=== PATIENT | female | born 1945 | race Caucasian/White ===

== ENCOUNTER 2017-01-24 18:19 | Inpatient (IN) ==
--- NOTE | 2017-01-24 18:40 | EKG Report ---
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
[2017-01-24] MEDS ORDERED: ASPIRIN 325 MG TABLET PO STA (19:56)
[2017-01-24] MEDS ORDERED: ASPIRIN 325 MG TABLET ONE (20:03)
[2017-01-24 20:07] LABS: Basophils # 0.1 10*3/uL (0.0-0.2); Basophils % 0.5 % (0.0-0.8); Eosinophils # 0.1 10*3/uL (0.0-0.87); Eosinophils % 0.4 % (0.00-10.9); Hematocrit 44.9 VOL% (35.7-47.0); Hemoglobin 14.9 GM/DL (12.0-16.0); Immature Granulocytes % 0.3 %; Immature Granulocytes Absolute 0.05 #; Lymphocytes # 4.5 10*3/uL (1.4-4.0); Lymphocytes % 26.3 % (21.3-54.2); Mean Corpuscular HGB Conc 33.2 GM/DL (32-36); Mean Corpuscular Hemoglobin 31 PG (27-34); Mean Platelet Volume 11.8 FL (9.6-12.0); Monocytes # 2.5 10*3/uL (0.11-0.8); Monocytes % 14.6 % (1.7-12.7); Neutrophils # 9.8 10*3/uL (1.4-7.4); Neutrophils % 57.9 % (38.7-73.9); Platelet Count 267 T/CUMM (130-400); Red Blood Count 4.83 MC/CUMM (3.8-5.5); Red Cell Distribution Width 14.4 % (9.3-17.3)
--- NOTE | 2017-01-24 20:21 | XRay Report ---
XR chest 1V portable Indication: Chest pain, dyspnea Comparison: 25 August 2010 Findings: The heart and mediastinum are stable in size and configuration. The pulmonary vascularity is slightly increased with bilateral increased interstitial lung density. No other lung infiltrates, effusions, pneumothorax or other abnormality is demonstrated. Impression: Findings suggest mild cardiac decompensation. PROCEDURE INTERPRETED AT [facility] DEPARTMENT OF RADIOLOGY Final Report Signed by: Dr. Troy Nolasco
[2017-01-24 20:22] LABS: D-Dimer 0.7 MG/L FEU; INR 1.1; PT Patient Result 11.3 SECS; Partial Thromboplastin Time 26.4 SECS (0-40)
[2017-01-24 20:30] LABS: Alanine Aminotransferase 19 U/L (13-56); Albumin 3.7 G/DL (3.4-5.0); Alkaline Phosphatase 122 U/L (45-117); Aspartate Amino Transferase 14 U/L (0-37); Blood Urea Nitrogen 10 MG/DL (7-18); Calcium 9.1 MG/DL (8.5-10.1); Glucose 107 MG/DL (74-106); Osmolality,Calculated 275.5 MOS/KG (273-304); Sodium 139 MMOL/L (136-145); Total Protein 8.2 G/DL (6.4-8.3); Troponin I Only 0.017 NG/ML (0.00-0.045)
--- NOTE | 2017-01-24 21:41 | Emergency Department Note ---
Arrival - Arrival Chief Complaint: Chest Pain Stated Complaint: chest pains/sob ED Nursing Triage Note: C/O Having chest pain since 0700, also c/o having SOB., States the pain is radiating to the left shoulder, denies nausea., denies vomiting., + coughing., denies having increase temp at home, ekg obtained at triage Mode of Arrival: Wheelchair Limitations: No Limitations Source: Patient, RN Notes Reviewed Time Seen by Provider: 01/24/17 19:26 - History of Present Illness HPI Narrative: Patient complains of shortness of breath and chest pains off and on since 7:00 this morning. She is having no chest pain now, just shortness of breath. She describes the chest pain as pressure and radiating from the left shoulder to the chest. She has had no nausea, vomiting or diaphoresis. She notes no exacerbating or relieving factors. She denies fever, chills, cough or any other recent illness. She has a history of hypertension, hyperlipidemia and heart disease. She has had bypass and stents in the past. Allergies/Adverse Reactions: Allergies Allergy/AdvReac Type Severity Reaction Status Date / Time allopurinol Allergy HIVES Verified 01/24/17 18:34 pregabalin [From Lyrica] Allergy HIVES Verified 01/24/17 18:34 Review of System - Review of System 12 point system: reviewed and no additional remarkable complaints except as stated - Review of System Constitutional: Present: weakness. Absent: chills, diaphoresis, fever Head/Ears/Nose/Throat: Absent: nasal drainage, sore throat Respiratory: Present: cough, respiratory distress. Absent: wheezing Cardiovascular: Present: chest pain, dyspnea on exertion, edema (Chronic but perhaps worse than baseline.) Gastrointestinal: Absent: nausea, vomiting Musculoskeletal: Present: arm pain (Left shoulder) Medical,Surgical,& Family Hx - Medical History Cardio: History of: CAD, Hypertension Endocrine: History of: Dyslipidemia - Surgical History Cardiac Surgeries: Sugical HX of: Cardiac Catheterization, Cardiac Surgery - Family History Family History: noncontributory - Social History Smoking Status: Never smoker Frequency of Alcohol Use: None Type of Drug Use: None Exam Physical Examination: GENERAL: Alert. No acute distress. HEENT: Normocephalic and atraumatic. There is no nasal drainage. No pharyngeal erythema or exudate. NECK: Normal inspection. Supple. No lymphadenopathy or meningismus. LUNGS: No respiratory distress. Rales bilaterally right greater than left. HEART: Regular rate and rhythm. ABDOMEN: Soft, nontender and nondistended with normoactive bowel sounds. BACK: Normal inspection. SKIN: Color normal. Warm and dry. EXTREMITIES: Nontender. Normal range of motion. There is severe brawny edema to both lower extremities. NEUROLOGICAL/PSYCHIATRIC: Alert and oriented -3 with normal mood and affect. Cranial nerves normal. No motor or sensory deficit. Vital Signs: Vital Signs Temperature 101 F H 01/24/17 19:20 Pulse Rate 58 L 01/24/17 19:20 Respiratory Rate 16 01/24/17 19:20 Blood Pressure 185/86 01/24/17 19:20 O2 Sat by Pulse Oximetry 94 L 01/24/17 18:24 Course - Reevaluation(s) Reevaluation #1: Cardiac enzymes are normal. There appears to be increased density in the right lower lobe on the chest x-ray. Given this, her elevated white count and elevated temperature, I think this is pneumonia rather than CHF. I discussed the patient with Dr. Tan and will admit her to telemetry and start antibiotics. We will recheck her cardiac enzymes as well but they are normal at this point. I will avoid giving her a lot of fluids due to the possibility of some CHF as well. Time: 21:50 Results - Labs CBC & BMP: 01/24/17 19:55 01/24/17 19:55 Disposition Clinical Impression: Chest pain, Pneumonia Case discussed with: patient, patient's family Disposition: Still a Patient Condition: Stable Time of Disposition: 21:51
[2017-01-24] MEDS ORDERED: cefTRIAXone 1,000 MG in SODIUM CHLORIDE 0.9% 100 ML IV STA (21:45)
[2017-01-24] MEDS ORDERED: SODIUM CHLORIDE 0.9% 100 ML IV ONE (23:12)
[2017-01-24] MEDS ORDERED: cefTRIAXone 1,000 MG VIAL ONE (23:12)
[2017-01-25] MEDS ORDERED: SODIUM CHLORIDE 0.45% 1,000 ML IV SCH (00:27)
[2017-01-25] MEDS ORDERED: ONDANSETRON 4 MG/2 ML VIAL IV PRN (00:27)
[2017-01-25] MEDS ORDERED: MORPHINE 2 MG/1 ML SYRINGE IV PRN (00:27)
[2017-01-25] MEDS ORDERED: ACETAMINOPHEN 325 MG TABLET PO PRN (00:27)
[2017-01-25] MEDS ORDERED: LEVOFLOXACIN INJ 750 MG in PREMIX 1 EACH IV STA (00:27)
[2017-01-25 01:30] LABS: Apearance,Urine CLEAR (Clear); Bilirubin,Urine Negative (Negative); Blood, Urine Negative (Negative); Glucose,Urine (UA) Negative (Negative); Ketones,Urine Negative (Negative); Nitrite,Urine Negative (Negative); Protein,Urine Negative; RBC,Urine <1 /HPF (0-4); Squamous Epithelial Cell,Urine Occasional /HPF (0-10); Urine Color Straw (Yellow); Urine Specific Gravity 1.005 (1.001-1.035); Urine Urobilinogen < 2.0 EU/DL (0.2-1.0); WBC,Urine 1 /HPF (0-6)
--- NOTE | 2017-01-25 08:32 | Family Practice History&Phys ---
Assessment and Plan (1) right lower lobe pneumonia Status: Acute Assessment and plan: We will admit and start on empiric antibiotic therapy Current Visit: Yes (2) status post coronary artery bypass graft Status: Chronic Assessment and plan: We'll consult cardiology since patient has not been seen in years for follow-up Current Visit: Yes (3) Coronary artery disease Status: Chronic Assessment and plan: We'll ask cardiology to a bowel patient who has not been followed for years for coronary artery disease Current Visit: Yes (4) Hypertension Status: Chronic Assessment and plan: Stable on present medication Current Visit: Yes (5) Unspecified sleep apnea Status: Chronic Assessment and plan: We will consult Dr. Balderas to evaluate Current Visit: Yes (6) Morbid obesity with BMI of 50.0-59.9, adult Status: Chronic Assessment and plan: Has been very difficult to have patient lose any meaningful weight Current Visit: Yes (7) Hyperlipidemia Status: Chronic Assessment and plan: Stable on present medication Current Visit: Yes History of Present Illness Chief complaint: Chest pain, dyspnea History of present illness: Ms. Kulkarni is a 71 year old female 71-year-old white female well known to me presented to emergency room with complaint of slight cough with pain in the left upper chest and dyspnea. Symptoms rather rapid onset over a 24-hour period of time. She was seen in emergency room and diagnosed with a right lower lobe pneumonia. She has had minimal cough but have a temperature of 101 on admission she also had a 17,000 white blood cell count. Chest x-ray is read more of a heart failure and pneumonia. BNP is 108. Patient states she was extremely dyspneic on admission. Has a history of coronary artery disease with previous coronary bypass graft has had no cardiac follow-up in many years in view of overall history we'll admit and have cardiology evaluate during this hospitalization she has been started on empiric antibiotic therapy . Home Medications Medication Instructions Recorded Confirmed Type Amlodipine Besylate [Amlodipine 10 mg PO DAILY 01/25/17 01/25/17 History Besylate] Aspirin [Ecotrin] 81 mg PO DAILY 01/25/17 01/25/17 History Atorvastatin [Lipitor] 40 mg PO DAILY 01/25/17 01/25/17 History Clopidogrel Bisulfate [Clopidogrel] 75 mg PO DAILY 01/25/17 01/25/17 History Furosemide [Furosemide] 40 mg PO DAILY 01/25/17 01/25/17 History Metoprolol Succinate 25 mg PO DAILY 01/25/17 01/25/17 History raNITIdine HCl [Ranitidine HCl] 300 mg PO DAILY 01/25/17 01/25/17 History Allergies Allergy/AdvReac Type Severity Reaction Status Date / Time allopurinol Allergy HIVES Verified 01/24/17 18:34 pregabalin [From Lyrica] Allergy HIVES Verified 01/24/17 18:34 Medical,Surgical,& Family Hx - Medical History Cardio: History of: CAD, Hypertension, Cardiovascular Problems HEENT: History of: Eye Problem Endocrine: History of: Dyslipidemia Musculoskeletal: History of: Musculoskeletal Problems - Surgical History Cardiac Surgeries: Sugical HX of: Cardiac Catheterization, Cardiac Surgery Thoracic Surgeries: Patient denies;: Organ Transplant, Lobectomy Neurologic Surgeries: Patient denies: Neurologic Surgery Abdominal Surgeries: Patient denies: Abdominal Surgery Reproductive Surgeries: Surgical HX of;: Hysterectomy Patient denies;: Genitourinary Surgery Orthopedic Surgeries: Surgical HX of;: Total Knee Replacement - Social History Smoking Status: Never smoker Frequency of Alcohol Use: None Type of Drug Use: None Marital Status: Lives With:: Spouse Functional capacity: independent ambulation Exam - Constitutional Vitals: Period Temp Pulse Resp BP Sys/Grant Pulse Ox Last 24 Hr 99.6 F-101.0 F 58-80 16-20 145-190/64-88 92-95 General appearance: mild distress - Head Head exam: Present: normal inspection - Eye Eye exam: Present: EOMI Pupils: Present: DELL - ENT ENT exam: Present: normal exam - Neck Neck exam: Present: normal inspection - Respiratory Respiratory exam: Present: clear to auscultation bilaterally - Cardiovascular Cardiovascular exam: Present: regular rate and rhythm - GI/Abdominal GI/Abdominal exam: Present: normal bowel sounds, soft - Extremities Exam Extremities exam: Present: other (patient has lymphedema ankles and feet) - Back Exam Back exam: Present: normal inspection - Neurological Exam Neurological exam: Present: alert - Psychiatric Psychiatric exam: Present: normal affect, normal mood - Skin Skin exam: Present: normal color Results - Labs CBC & BMP: 01/24/17 19:55 01/24/17 19:55
[2017-01-25] MEDS ORDERED: FUROSEMIDE 40 MG TABLET PO SCH (09:00)
[2017-01-25] MEDS ORDERED: METOPROLOL SUCCINATE XL 25 MG TABLET PO SCH (09:00)
[2017-01-25] MEDS: DOCUSATE SODIUM 100 MG CAPSULE PO SCH ×2 (09:31→21:39)
[2017-01-25] MEDS: ATORVASTATIN 40 MG TABLET PO SCH (09:31)
[2017-01-25] MEDS: amLODIPine 10 MG TABLET PO SCH (09:31)
[2017-01-25] MEDS: CLOPIDOGREL 75 MG TABLET PO SCH (09:32)
[2017-01-25] MEDS: ASPIRIN EC 81 MG TABLET PO SCH (09:32)
[2017-01-25] MEDS: PANTOPRAZOLE 40 MG TABLET PO SCH (09:32)
--- NOTE | 2017-01-25 10:46 | Cardiology Consult Note ---
<Dorina Gloria E - Last Filed: 01/25/17 10:43> Assessment and Plan - Time spent with patient Time spent with patient: Greater than 30 minutes (due to assessment, plan, and documentation) (1) Chest pain Status: Acute Assessment and plan: See plan of care listed below. Current Visit: Yes (2) Pneumonia Status: Acute Assessment and plan: See plan of care listed below. Current Visit: Yes (3) Coronary artery disease Status: Chronic Assessment and plan: See plan of care listed below. Current Visit: Yes (4) Hypertension Status: Chronic Assessment and plan: See plan of care listed below. Current Visit: Yes (5) Hyperlipidemia Status: Chronic Assessment and plan: See plan of care listed below. Current Visit: Yes (6) Morbid obesity with BMI of 50.0-59.9, adult Status: Chronic Assessment and plan: See plan of care listed below. 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 Mcbride PCP: Dr. David Ms. Kulkarni is a 71 year old female with history of premature coronary artery disease, hypertension, hyperlipidemia, morbid obesity. She is status post coronary artery bypass grafting on 11/26/1997 (at age 51) by Dr. Adams with LUNDBERG to the LAD, Y graft using saphenous vein to the diagonal and circumflex, and single graft to the RCA. She is a lifetime non-smoker. She tells me that she has not followed up with cardiology in over 10 years as her insurance changed and would no longer cover [facility] physicians and required her to go to [facility] which she did not wish to do. She denies a history of smoking and states she has never been checked for sleep apnea. She last had a normal perfusion study on 10/20/2004. Ms. Kulkarni presented to the emergency room with complaints of cough, dyspnea, and pain in the left upper chest, rapidly onset over the past 24 hours. Her initial temperature was 101 she had a white count of 17. She was admitted for further treatment of right lower lobe pneumonia and we were consulted to see her due to her complaint of chest pain. Ms. Kulkarni tells me that her symptoms really began yesterday morning when she woke up with her left chest wall and shoulder hurting. She also states she was short of breath, more so than usual. She describes her pain as being sharp in quality and isolated to her left chest wall and on top of her left shoulder. She reports it was "pretty painful. " It came and went throughout the day until she decided to seek further evaluation in the emergency room. She can identify no exacerbating or alleviating factors. She notes that this is very different from the pain that she had before she required coronary artery bypass grafting. She does admit that she has had chronic dyspnea on exertion ever since having bypass surgery and this does not seem to have changed recently. She denies any chest pain on exertion. She does report occasional bilateral lower extremity edema and occasional palpitations (this occurred twice in the month of September and has not occurred since). She reports that prior to admission she "felt bad" 2 nights ago and has been fatigued. She has had 3 sets of negative troponins. Her EKG shows sinus rhythm with nonspecific ST and T-wave abnormality. I am unable to access any prior EKGs for comparison. Her BNP on admission was 108. Creatinine on admission was 0.7. Potassium 4.0. ASSESSMENT/PLAN: 1. CHEST PAIN - Although her pain does not sound completely typical of angina, she has not had cardiac follow up in many years. She has been ruled out for MD, but she would likely benefit from further evaluation with stress testing. Will further discuss with Dr. Mcbride for his recommendations on inpatient versus outpatient stress testing. 2. PNEUMONIA - Family medicine is following. She has been started on IVF for hydration and IV antibiotics. 3. CORONARY ARTERY DISEASE - She is status post coronary artery bypass grafting on 11/26/[address] Adams with LUNDBERG to the LAD, Y graft using saphenous vein to the diagonal and circumflex, and single graft to the RCA. Continue ASA, Plavix , statin, beta kunal. Will check echocardiogram to assess for wall motion or valvular abnormalities. 4. HYPERTENSION - Suboptimally controlled since admission. Will increase her dose of Toprol XL and continue to monitor and adjust medications accordingly. 5. HYPERLIPIDEMIA - Continue lipid lowering agent. Lipid panel in AM. 6. MORBID OBESITY - Chronic. CC: Patel David, DO - Home Medications and Allergies Home Medications: Home Medications Medication Instructions Recorded Confirmed Type Amlodipine Besylate [Amlodipine 10 mg PO DAILY 01/25/17 01/25/17 History Besylate] Aspirin [Ecotrin] 81 mg PO DAILY 01/25/17 01/25/17 History Atorvastatin [Lipitor] 40 mg PO DAILY 01/25/17 01/25/17 History Clopidogrel Bisulfate [Clopidogrel] 75 mg PO DAILY 01/25/17 01/25/17 History Furosemide [Furosemide] 40 mg PO DAILY 01/25/17 01/25/17 History Metoprolol Succinate 25 mg PO DAILY 01/25/17 01/25/17 History raNITIdine HCl [Ranitidine HCl] 300 mg PO DAILY 01/25/17 01/25/17 History Allergies/Adverse Reactions: Allergies Allergy/AdvReac Type Severity Reaction Status Date / Time allopurinol Allergy HIVES Verified 01/24/17 18:34 pregabalin [From Lyrica] Allergy HIVES Verified 01/24/17 18:34 Review of systems: - Constitutional: Present: fatigue, fever(s), As per HPI. Absent: anorexia, chills, daytime sleepiness, excessive sweating, frequent falls, headache(s), increased appetite, lethargy, malaise, night sweats, stops breathing during sleep, weakness, weight gain, weight loss. - EENT Eyes: Present: As per HPI. Absent: blurry vision, diplopia, loss of vision Ears: Present: As per HPI. Absent: decreased hearing, ear discharge, ear pain Nose, mouth and throat: Present: As per HPI. Absent: dysphagia, epistaxis, headache(s), hoarseness, lip swelling, nasal congestion, neck mass, neck pain, sinus pressure, sore throat, throat swelling, tongue swelling, vertigo - Cardiovascular: Present: chest pain at rest, dyspnea, dyspnea on exertion, edema, radiating shoulder pain, palpitations, as per HPI. Absent: chest pain with activity, claudication, diaphoresis, lightheadedness, orthopnea, PND - Respiratory: Present: dyspnea, dyspnea on exertion, cough, as per HPI. Absent : hemoptysis, wheezing, snoring, pain on inspiration - Gastrointestinal: Present: As per HPI. Absent: abdominal pain, bloating, change in bowel habits, constipation, diarrhea, heartburn, hematemesis, hematochezia, loose stools, melena, nausea, vomiting - Genitourinary: Present: As per HPI. Absent: difficulty urinating, dysuria, flank pain, hematuria, nocturia, urinary frequency, urinary incontinence - Musculoskeletal: Present: As per HPI. Absent: arthralgias, back pain, joint swelling, limited range of motion, muscle cramps, muscle weakness, myalgias - Neurological: Present: As per HPI. Absent: abnormal gait, abnormal speech, behavioral changes, confusion, convulsions, disequilibrium, dizziness, focal weakness, frequent falls, headache(s), memory loss, numbness, paresthesias, radicular pain, syncope, tremor(s) - Psychiatric: Present: As per HPI. Absent: anxiety, confusion, depression, panic attacks - Endocrine: Present: fatigue, As per HPI. Absent: cold intolerance, heat intolerance, polydipsia, polyphagia - Hematologic/Lymphatic: Present: As per HPI. Absent: easy bleeding, easy bruising, lymphadenopathy Medical,Surgical,& Family Hx - Medical History Cardio: History of: CAD, Hypertension, Cardiovascular Problems HEENT: History of: Eye Problem Endocrine: History of: Dyslipidemia Musculoskeletal: History of: Musculoskeletal Problems - Surgical History Cardiac Surgeries: Sugical HX of: Cardiac Catheterization, Cardiac Surgery Thoracic Surgeries: Patient denies;: Organ Transplant, Lobectomy Neurologic Surgeries: Patient denies: Neurologic Surgery Abdominal Surgeries: Patient denies: Abdominal Surgery Reproductive Surgeries: Surgical HX of;: Hysterectomy Patient denies;: Genitourinary Surgery Orthopedic Surgeries: Surgical HX of;: Total Knee Replacement - Social History Smoking Status: Never smoker Frequency of Alcohol Use: None Type of Drug Use: None Marital Status: Lives With:: Spouse Functional capacity: independent ambulation Physical Examination Vital Signs Temp Pulse Resp BP Pulse Ox 101.0 F H 58 L 16 185/86 94 L 01/24/17 18:24 01/24/17 18:24 01/24/17 18:24 01/24/17 18:24 01/24/17 18:24 Exam: General appearance: Pleasant and cooperative. Morbidly obese, no acute distress. - Head Head exam: Present: normal inspection, normocephalic, atraumatic. Absent: hematoma, laceration - Eye Eye exam: Present: EOMI. Absent: conjunctival injection, nystagmus, periorbital swelling, scleral icterus, laceration to eyelids Pupils: Present: PERRL. Absent: constricted, dilated, fixed, irregular, unequal - ENT ENT exam: Present: normal exam, normal external ear exam - Neck Neck exam: Present: normal inspection. Absent: meningismus, tenderness, thyromegaly, carotid bruit - Respiratory Respiratory exam: Present: Decreased breath sounds posteriorly with rales bilaterally, right greater than left. Absent: accessory muscle use, chest wall tenderness. - Cardiovascular Cardiovascular exam: Present: regular rate and rhythm. Unable to assess for JVD due to habitus. Absent: gallop, rubs, murmur - GI/Abdominal GI/Abdominal exam: Present: normal bowel sounds, soft. Absent: distended, firm , guarding, hernia, mass, tenderness, rebound. - Extremities Exam Extremities exam: Present: normal inspection, normal capillary refill. Upper extremity pulses 2+. Lower extremity pulses 2+. 2+ pitting edema to BLE. Absent : calf tenderness -Musculoskeletal Exam Musculoskeletal: Present: No Fluid Collection, No Pain, Normal Range of Motion - Back Exam Back exam: Present: normal inspection. Absent: muscle spasm, vertebral tenderness - Neurological Exam Neurological exam: Present: alert, oriented X3, grossly intact without resting or essential tremor - Psychiatric Psychiatric exam: Present: normal affect, normal mood - Skin Skin exam: Present: normal color, warm, dry, intact, scaly patches noted to BLE. Absent: cyanosis, diaphoretic, urticaria Result/EKG - Labs CBC & BMP: 01/24/17 19:55 01/24/17 19:55 Lab Results: I have reviewed the past 24 hour labs Labs: Laboratory Results - last 24 hr 01/24/17 01/24/17 01/24/17 19:55 19:55 19:55 WBC RBC Hgb Hct MCV MCH MCHC RDW Plt Count MPV Neut % (Auto) Lymph % (Auto) Adams % (Auto) Eos % (Auto) Baso % (Auto) Neut # (Auto) Lymph # (Auto) Adams # (Auto) Eos # (Auto) Baso # (Auto) Immature Gran % Nucleated RBC % Immature Gran # Nucleated RBCs # INR 1.1 PT Patient/Control Mix 11.3 D-Dimer, Quantitative 0.7 Circ Anticoag PTT 26.4 Sodium 139 Potassium 4.0 Chloride 105 Carbon Dioxide 27 Anion Gap 11.0 BUN 10 Creatinine 0.70 GFR Calculation 0 BUN/Creatinine Ratio 14.00 Glucose 107 H Calculated Osmolality 275.5 Lactic Acid Calcium 9.1 Total Bilirubin 0.80 AST 14 ALT 19 Alkaline Phosphatase 122 H Total Creatine Kinase 101 CK-MB (CK-2) < 1.0 Troponin I 0.017 B-Natriuretic Peptide 108 H Total Protein 8.2 Albumin 3.7 Globulin 4.5 H Albumin/Globulin Ratio 0.8 L Urine Color Urine Appearance Urine pH Ur Specific [place] Urine Protein Urine Glucose (UA) Urine Ketones Urine Blood Urine Nitrate Urine Bilirubin Urine Urobilinogen Urine Leukocytes Urine RBC Urine WBC Ur Squamous Epith Cells Ur Culture Indicated? 01/24/17 01/24/17 01/25/17 19:55 23:04 00:57 WBC 17.0 H RBC 4.83 Hgb 14.9 Hct 44.9 MCV 93.0 MCH 31 MCHC 33.2 RDW 14.4 Plt Count 267 MPV 11.8 Neut % (Auto) 57.9 Lymph % (Auto) 26.3 Adams % (Auto) 14.6 H Eos % (Auto) 0.4 Baso % (Auto) 0.5 Neut # (Auto) 9.8 H Lymph # (Auto) 4.5 H Adams # (Auto) 2.5 H Eos # (Auto) 0.1 Baso # (Auto) 0.1 Immature Gran % 0.3 Nucleated RBC % 0.0 Immature Gran # 0.05 Nucleated RBCs # 0.00 INR PT Patient/Control Mix D-Dimer, Quantitative Circ Anticoag PTT Sodium Potassium Chloride Carbon Dioxide Anion Gap BUN Creatinine GFR Calculation BUN/Creatinine Ratio Glucose Calculated Osmolality Lactic Acid 1.5 Calcium Total Bilirubin AST ALT Alkaline Phosphatase Total Creatine Kinase CK-MB (CK-2) Troponin I 0.018 B-Natriuretic Peptide Total Protein Albumin Globulin Albumin/Globulin Ratio Urine Color Urine Appearance Urine pH Ur Specific [place] Urine Protein Urine Glucose (UA) Urine Ketones Urine Blood Urine Nitrate Urine Bilirubin Urine Urobilinogen Urine Leukocytes Urine RBC Urine WBC Ur Squamous Epith Cells Ur Culture Indicated? 01/25/17 01/25/17 01:24 04:33 WBC RBC Hgb Hct MCV MCH MCHC RDW Plt Count MPV Neut % (Auto) Lymph % (Auto) Adams % (Auto) Eos % (Auto) Baso % (Auto) Neut # (Auto) Lymph # (Auto) Adams # (Auto) Eos # (Auto) Baso # (Auto) Immature Gran % Nucleated RBC % Immature Gran # Nucleated RBCs # INR PT Patient/Control Mix D-Dimer, Quantitative Circ Anticoag PTT Sodium Potassium Chloride Carbon Dioxide Anion Gap BUN Creatinine GFR Calculation BUN/Creatinine Ratio Glucose Calculated Osmolality Lactic Acid Calcium Total Bilirubin AST ALT Alkaline Phosphatase Total Creatine Kinase CK-MB (CK-2) Troponin I 0.029 B-Natriuretic Peptide Total Protein Albumin Globulin Albumin/Globulin Ratio Urine Color Straw Urine Appearance Clear Urine pH 8.0 Ur Specific [place] 1.005 Urine Protein Negative Urine Glucose (UA) Negative Urine Ketones Negative Urine Blood Negative Urine Nitrate Negative Urine Bilirubin Negative Urine Urobilinogen < 2.0 H Urine Leukocytes Negative Urine RBC <1 Urine WBC 1 Ur Squamous Epith Cells Occasional Ur Culture Indicated? Not indicated - EKG EKG results: interpreted by me, sinus rhythm (with nonspecific ST-T abnormality) <Vipul Mcbride - Last Filed: 01/25/17 13:23> History of Present Illness - Consult Narrative History of present illness: Cardiology addendum Patient examined chart reviewed and discussed with nurse Dorina Gloria NP. 71-year-old woman admitted with increasing shortness of breath and fatigue. Chest x-ray shows cardiomegaly and CHF. There is a right lower lobe density, suggestive of pneumonia. EKG shows sinus rhythm with incomplete right bundle branch block and ST-T wave changes. Status post four-vessel CABG November 26, 1997 with LUNDBERG graft to LAD, Y graft to diagonal and circumflex and vein graft to distal right coronary. Normal Lexiscan cardiac stress test October 20, 2004. No cardiac follow-up since then. Lifetime non-smoker. Chronic hypertension. Morbid obesity, 5 feet 6 inches tall, 364 pounds. Patient weighed 388 pounds 3 weeks ago No diabetes. Restless legs. IRENE suspected. Plan 40 mg IV Lasix daily Duo nebs Supplemental O2 as needed Echo Doppler Chest x-ray is more consistent with CHF, despite BNP level only 108. Bypass grafts are 19 years old. I am leaning toward cath. IRENE suspected. Will ask Dr. Balderas to see. CC: Patel David, DO Physical Examination Vital Signs Temp Pulse Resp BP Pulse Ox 101.0 F H 58 L 16 185/86 94 L 01/24/17 18:24 01/24/17 18:24 01/24/17 18:24 01/24/17 18:24 01/24/17 18:24 Result/EKG - Labs CBC & BMP: 01/24/17 19:55 01/24/17 19:55 Labs: Laboratory Results - last 24 hr 01/24/17 01/24/17 01/24/17 19:55 19:55 19:55 WBC RBC Hgb Hct MCV MCH MCHC RDW Plt Count MPV Neut % (Auto) Lymph % (Auto) Adams % (Auto) Eos % (Auto) Baso % (Auto) Neut # (Auto) Lymph # (Auto) Adams # (Auto) Eos # (Auto) Baso # (Auto) Immature Gran % Nucleated RBC % Immature Gran # Nucleated RBCs # INR 1.1 PT Patient/Control Mix 11.3 D-Dimer, Quantitative 0.7 Circ Anticoag PTT 26.4 Sodium 139 Potassium 4.0 Chloride 105 Carbon Dioxide 27 Anion Gap 11.0 BUN 10 Creatinine 0.70 GFR Calculation 0 BUN/Creatinine Ratio 14.00 Glucose 107 H Calculated Osmolality 275.5 Lactic Acid Calcium 9.1 Total Bilirubin 0.80 AST 14 ALT 19 Alkaline Phosphatase 122 H Total Creatine Kinase 101 CK-MB (CK-2) < 1.0 Troponin I 0.017 B-Natriuretic Peptide 108 H Total Protein 8.2 Albumin 3.7 Globulin 4.5 H Albumin/Globulin Ratio 0.8 L Urine Color Urine Appearance Urine pH Ur Specific [place] Urine Protein Urine Glucose (UA) Urine Ketones Urine Blood Urine Nitrate Urine Bilirubin Urine Urobilinogen Urine Leukocytes Urine RBC Urine WBC Ur Squamous Epith Cells Ur Culture Indicated? 01/24/17 01/24/17 01/25/17 19:55 23:04 00:57 WBC 17.0 H RBC 4.83 Hgb 14.9 Hct 44.9 MCV 93.0 MCH 31 MCHC 33.2 RDW 14.4 Plt Count 267 MPV 11.8 Neut % (Auto) 57.9 Lymph % (Auto) 26.3 Adams % (Auto) 14.6 H Eos % (Auto) 0.4 Baso % (Auto) 0.5 Neut # (Auto) 9.8 H Lymph # (Auto) 4.5 H Adams # (Auto) 2.5 H Eos # (Auto) 0.1 Baso # (Auto) 0.1 Immature Gran % 0.3 Nucleated RBC % 0.0 Immature Gran # 0.05 Nucleated RBCs # 0.00 INR PT Patient/Control Mix D-Dimer, Quantitative Circ Anticoag PTT Sodium Potassium Chloride Carbon Dioxide Anion Gap BUN Creatinine GFR Calculation BUN/Creatinine Ratio Glucose Calculated Osmolality Lactic Acid 1.5 Calcium Total Bilirubin AST ALT Alkaline Phosphatase Total Creatine Kinase CK-MB (CK-2) Troponin I 0.018 B-Natriuretic Peptide Total Protein Albumin Globulin Albumin/Globulin Ratio Urine Color Urine Appearance Urine pH Ur Specific [place] Urine Protein Urine Glucose (UA) Urine Ketones Urine Blood Urine Nitrate Urine Bilirubin Urine Urobilinogen Urine Leukocytes Urine RBC Urine WBC Ur Squamous Epith Cells Ur Culture Indicated? 01/25/17 01/25/17 01/25/17 01:24 04:33 10:43 WBC RBC Hgb Hct MCV MCH MCHC RDW Plt Count MPV Neut % (Auto) Lymph % (Auto) Adams % (Auto) Eos % (Auto) Baso % (Auto) Neut # (Auto) Lymph # (Auto) Adams # (Auto) Eos # (Auto) Baso # (Auto) Immature Gran % Nucleated RBC % Immature Gran # Nucleated RBCs # INR PT Patient/Control Mix D-Dimer, Quantitative Circ Anticoag PTT Sodium Potassium Chloride Carbon Dioxide Anion Gap BUN Creatinine GFR Calculation BUN/Creatinine Ratio Glucose Calculated Osmolality Lactic Acid Calcium Total Bilirubin AST ALT Alkaline Phosphatase Total Creatine Kinase 1057 H D CK-MB (CK-2) 3.7 H Troponin I 0.029 0.092 H D B-Natriuretic Peptide Total Protein Albumin Globulin Albumin/Globulin Ratio Urine Color Straw Urine Appearance Clear Urine pH 8.0 Ur Specific [place] 1.005 Urine Protein Negative Urine Glucose (UA) Negative Urine Ketones Negative Urine Blood Negative Urine Nitrate Negative Urine Bilirubin Negative Urine Urobilinogen < 2.0 H Urine Leukocytes Negative Urine RBC <1 Urine WBC 1 Ur Squamous Epith Cells Occasional Ur Culture Indicated? Not indicated
--- NOTE | 2017-01-25 10:49 | EKG Report ---
Stationary ECG Study 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
[2017-01-25 12:02] LABS: Troponin I Only 0.092 NG/ML (0.00-0.045)
[2017-01-25] MEDS: ALBUTEROL/IPRATROPIUM 3 ML NEB RESP TX SCH ×3 (14:00→23:48)
--- NOTE | 2017-01-25 15:40 | Ultrasound Report ---
History: Shortness of breath. Lower extremity edema Date: 01/25/2017 Study: Bilateral lower extremity color-flow venous Doppler study Comparison exam: February 02, 2014 Color Doppler, wave form analysis, and compression analysis of the deep veins of both lower extremities from the common femoral vein level through the popliteal vein level shows that the veins are readily compressible. There is no abnormal intraluminal material to suggest thrombus. Waveform analysis is unremarkable. Ultrasound images were captured and archived Impression: Normal bilateral lower extremity color flow venous Doppler study. No evidence of acute DVT PROCEDURE INTERPRETED AT [facility] DEPARTMENT OF RADIOLOGY Final Report Signed by: Dr. Jackie Skelton
[2017-01-25] MEDS: FUROSEMIDE 40 MG/4 ML VIAL IV SCH (16:43)
[2017-01-25 16:54] LABS: Troponin I Only 0.107 NG/ML (0.00-0.045)
--- NOTE | 2017-01-25 17:46 | ECHO Report ---
Sandra Kulkarni Exam Date: 01/25/2017 13:42 Referring Physician: Technologist: Giovanna Ohara Age: 71 Ht (in): 66 Wt (lb): 369 Gender: F Exam Location: [facility] Echo Indications: dyslipidemia, chest pain, SOB, CAD, HTN, obesity BP: 188 / 88 HR: 79 Rhythm: Sinus Technical Quality: Technically difficult study IMPRESSIONS Technically difficult study .Septal hypokinersis, EF 55 %. Grade II/IV diastolic dysfunction, moderately elevated filling pressures. Normal right ventricular size. Moderately increased right atrial size. Moderately increased left atrial size. Morphologically normal mitral valve. No mitral valve regurgitation. Aortic valve sclerosis. No aortic valve regurgitation. Moderate tricuspid valve regurgitation. [id number] MMhg. Pulmonic valve not well visualized. No pericardial effusion. Normal size aortic root and proximal ascending aorta. MEASUREMENTS (Male / Female) Normal Values 2D ECHO LV Diastolic Diameter PLAX 3.2 cm 4.2 - 5.9 / 3.9 - 5.3 cm LV Systolic Diameter PLAX 1.8 cm LV Fractional Shortening PLAX 44.0 % IVS Diastolic Thickness 1.4 cm 0.6 - 1.0 / 0.6 - 0.9 cm LVPW Diastolic Thickness 1.4 cm 0.6 - 1.0 / 0.6 - 0.9 cm RV Internal Dim ED PLAX 2.8 cm Aortic Root Diameter 2.6 cm LA Systolic Diameter LX 4.0 cm 3.0 - 4.0 / 2.7 - 3.8 cm DOPPLER TR Peak Velocity 313.0 cm/s TR Peak Gradient 39.2 mmHg FINDINGS Left Ventricle Septal hypokinersis, EF 55 %. Grade II/IV diastolic dysfunction, moderately elevated filling pressures. Right Ventricle Normal right ventricular size. Right Atrium Moderately increased right atrial size. Left Atrium Moderately increased left atrial size. Mitral Valve Morphologically normal mitral valve. No mitral valve regurgitation. Aortic Valve Aortic valve sclerosis. No aortic valve regurgitation. Tricuspid Valve Morphologically normal tricuspid valve. Moderate tricuspid valve regurgitation. [id number] MMhg. Pulmonic Valve Pulmonic valve not well visualized. Pericardium No pericardial effusion. Aorta Normal size aortic root and proximal ascending aorta. Abraham Mcbride (Electronically Signed) Final Date: 25 January 2017 17:46
--- NOTE | 2017-01-25 18:44 | Sleep Medicine Consult ---
Assessment and Plan (1) Unspecified sleep apnea Status: Acute Assessment and plan: This patient does have a paucity of symptoms, such as snoring or abnormal breathing during sleep, to suggest sleep apnea but her physical findings certainly would lend high suspicion for sleep apnea. I do think that she should undergo sleep study evaluation. Thank you for this consult and the opportunity to participate in her care. Current Visit: Yes (2) Hypertension Status: Chronic Assessment and plan: The prevalence rate for obstructive sleep apnea patients with hypertension is 35 %. That rate can be as high as 80% in patients who require 4 or more medications for blood pressure control. Current Visit: Yes (3) Morbid obesity with BMI of 50.0-59.9, adult Status: Chronic Assessment and plan: Patient encouraged to continue to work on weight loss thru appropriate dieting and exercise. The combination of weight loss and CPAP therapy for obstructive sleep apnea is better than either therapy alone for obstructive sleep apnea. Current Visit: Yes (4) Coronary artery disease Status: Chronic Assessment and plan: I reviewed the [place] data from Lancet 2004 with the patient to their understanding. This study proved significant reduction in the risk of fatal and nonfatal cardiac events in patients with severe obstructive sleep apnea compliant with CPAP, in comparison with those noncompliant with CPAP for severe sleep apnea. Current Visit: Yes History of Present Illness Chief complaint: Sleep apnea History of present illness: Ms. Kulkarni is a 71 year old female admitted with shortness of breath. She has a history of hypertension and severe obesity. During the course of her evaluation , there was concern noted for sleep apnea. She denies any history of significant snoring and is never been told that she stops breathing during her sleep. She states that she never woke up from sleep short of breath until yesterday. She does have chronic issues with lower extremity swelling but denies any history of restless legs or leg jerks. She usually retires about 9: 51 PM and awakens about 6-7 each morning. She denies any sleepiness during the day. She does awaken 2-3 times a night to urinate. She has never had prior sleep study and does not sleep with oxygen. Home Medications Medication Instructions Recorded Confirmed Type Amlodipine Besylate [Amlodipine 10 mg PO DAILY 01/25/17 01/25/17 History Besylate] Aspirin [Ecotrin] 81 mg PO DAILY 01/25/17 01/25/17 History Atorvastatin [Lipitor] 40 mg PO DAILY 01/25/17 01/25/17 History Clopidogrel Bisulfate [Clopidogrel] 75 mg PO DAILY 01/25/17 01/25/17 History Furosemide [Furosemide] 40 mg PO DAILY 01/25/17 01/25/17 History Metoprolol Succinate 25 mg PO DAILY 01/25/17 01/25/17 History raNITIdine HCl [Ranitidine HCl] 300 mg PO DAILY 01/25/17 01/25/17 History Allergies Allergy/AdvReac Type Severity Reaction Status Date / Time allopurinol Allergy HIVES Verified 01/24/17 18:34 pregabalin [From Lyrica] Allergy HIVES Verified 01/24/17 18:34 Review of systems: Otherwise unremarkable from a sleep standpoint. Exam (Pulmonay) H&P - Constitutional Vitals: Period Temp Pulse Resp BP Sys/Grant Pulse Ox Last 24 Hr 99.6 F-101 F 58-80 16-24 145-190/64-88 92-100 Exam: She is alert and responsive. She is sitting up in a chair. Pupils equal round reactive to light and accommodation. Extraocular movements intact. Oropharynx with a class III Mallampati exam. Neck is supple without adenopathy or thyromegaly. No supraclavicular adenopathy is noted. Chest with symmetrical breath sounds without focal wheeze, rhonchi, or rales. Cardiac exam reveals a regular rhythm without murmur or gallop. Abdomen obese nontender without palpable hepatosplenomegaly or mass. Extremities with chronic venous insufficiency changes. Neurologically, she is grossly intact. She moves all extremities with good strength. Medical,Surgical,& Family Hx - Medical History Cardio: History of: CAD, Hypertension, Cardiovascular Problems HEENT: History of: Eye Problem Endocrine: History of: Dyslipidemia Musculoskeletal: History of: Musculoskeletal Problems - Surgical History Cardiac Surgeries: Sugical HX of: Cardiac Catheterization, Cardiac Surgery Thoracic Surgeries: Patient denies;: Organ Transplant, Lobectomy Neurologic Surgeries: Patient denies: Neurologic Surgery Abdominal Surgeries: Patient denies: Abdominal Surgery Reproductive Surgeries: Surgical HX of;: Hysterectomy Patient denies;: Genitourinary Surgery Orthopedic Surgeries: Surgical HX of;: Total Knee Replacement - Social History Smoking Status: Never smoker Frequency of Alcohol Use: None Type of Drug Use: None Results - Labs CBC & BMP: 01/24/17 19:55 01/24/17 19:55 Lab Results: I have reviewed the past 24 hour labs
[2017-01-25] MEDS ORDERED: AZITHROMYCIN INJ 500 MG in SODIUM CHLORIDE 0.9% 250 ML IV ONE (19:31)
[2017-01-25] MEDS ORDERED: DILTIAZEM 50 MG/10 ML VIAL IV ONE (22:49)
[2017-01-25] MEDS: DILTIAZEM INJ 100 MG in SODIUM CHLORIDE 0.9% 100 ML IV SCH (23:05)
[2017-01-26] MEDS: ALBUTEROL/IPRATROPIUM 3 ML NEB RESP TX SCH ×6 (03:12→23:56)
[2017-01-26] MEDS: DILTIAZEM INJ 100 MG in SODIUM CHLORIDE 0.9% 100 ML IV SCH (04:52)
[2017-01-26 06:29] LABS: Basophils # 0.1 10*3/uL (0.0-0.2); Basophils % 0.3 % (0.0-0.8); Eosinophils % 0.1 % (0.00-10.9); Hematocrit 40.1 VOL% (35.7-47.0); Hemoglobin 13.6 GM/DL (12.0-16.0); Immature Granulocytes % 0.5 %; Immature Granulocytes Absolute 0.09 #; Lymphocytes # 3.4 10*3/uL (1.4-4.0); Lymphocytes % 18.6 % (21.3-54.2); Mean Corpuscular HGB Conc 33.9 GM/DL (32-36); Mean Corpuscular Hemoglobin 31 PG (27-34); Mean Corpuscular Volume 92.4 FL (87-102); Mean Platelet Volume 11.4 FL (9.6-12.0); Monocytes # 2.7 10*3/uL (0.11-0.8); Monocytes % 14.9 % (1.7-12.7); Neutrophils % 65.6 % (38.7-73.9); Platelet Count 227 T/CUMM (130-400); Red Blood Count 4.34 MC/CUMM (3.8-5.5); Red Cell Distribution Width 14.5 % (9.3-17.3); White Blood Count 18.3 T/CUMM (4-12)
[2017-01-26 07:03] LABS: Calcium 8.3 MG/DL (8.5-10.1); Magnesium 2.2 MG/DL (1.8-2.4); Osmolality,Calculated 280.3 MOS/KG (273-304); Potassium 3.4 MMOL/L (3.5-5.1); Risk Ratio 2.12; VLDL CHOLESTEROL 15.8 MG/DL
--- NOTE | 2017-01-26 07:11 | EKG Report ---
Stationary ECG Study [facility] Test Date: 01/26/2017 7:12:23 AM Pat Name: ROBYN YEE Department: Room: 274 Gender: F Rehab Tech: DESTINY : 1945 Requested by: Jade Gloria Order Number: [id number] Reading MD: MELE BELLO Intervals [place] Rate: 73 P: 999 TN: 0 QRS: 70 QRSD: 121 T: -1 QT: 395 QTc: 421 Interpretive Statements ATRIAL FIBRILLATION NON-SPECIFIC INTRAVENTRICULAR CONDUCTION DELAYNON-SPECIFIC T-WAVE ABNORMALITY Electronically Signed On 01-26-17 11:46:02 CDT by MELE BELLO [id number]
--- NOTE | 2017-01-26 08:11 | EKG Report ---
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
--- NOTE | 2017-01-26 08:17 | Family Practice Progress Note ---
Family Practice - PN: Subj Interval history: Patient states she feels some better but is still very weak. Has had minimal cough. Patient had a run of atrial fibrillation during the night. She was started on Cardizem and is now back in normal sinus rhythm. Appreciate consultants input. I have discussed with Dr. Mcbride and agrees that patient needs cardiac catheterization. He plans to do that after patient improves. Her a.m. labs are stable except her WBC still elevated at 18,300 with a potassium of 3.4. Her enzymes have elevated since admission. Blood cultures are negative. Her lung barajas are clear to auscultation this a.m.. We will continue present evaluation and treatment Exam (Progress Note) - Constitutional Vitals: Period Temp Pulse Resp BP Sys/Grant Pulse Ox Last 24 Hr 96.8 F-99.6 F 67-112 16-24 124-171/56-84 94-100 Results - Labs CBC & BMP: 01/26/17 06:25 01/26/17 06:24 Assessment and Plan (1) right lower lobe pneumonia Status: Acute Assessment and plan: We will admit and start on empiric antibiotic therapy Current Visit: Yes (2) status post coronary artery bypass graft Status: Chronic Assessment and plan: We'll consult cardiology since patient has not been seen in years for follow-up Current Visit: Yes (3) Coronary artery disease Status: Chronic Assessment and plan: We'll ask cardiology to a bowel patient who has not been followed for years for coronary artery disease Current Visit: Yes (4) Hypertension Status: Chronic Assessment and plan: Stable on present medication Current Visit: Yes (5) Unspecified sleep apnea Status: Chronic Assessment and plan: We will consult Dr. Balderas to evaluate Current Visit: Yes (6) Morbid obesity with BMI of 50.0-59.9, adult Status: Chronic Assessment and plan: Has been very difficult to have patient lose any meaningful weight Current Visit: Yes (7) Hyperlipidemia Status: Chronic Assessment and plan: Stable on present medication Current Visit: Yes
[2017-01-26] MEDS ORDERED: POTASSIUM CHLORIDE 20 MEQ TABLET PO ONE (09:07)
[2017-01-26] MEDS: amLODIPine 10 MG TABLET PO SCH (10:31)
[2017-01-26] MEDS: PANTOPRAZOLE 40 MG TABLET PO SCH (10:31)
[2017-01-26] MEDS: CLOPIDOGREL 75 MG TABLET PO SCH (10:31)
[2017-01-26] MEDS: DOCUSATE SODIUM 100 MG CAPSULE PO SCH ×2 (10:31→21:05)
[2017-01-26] MEDS: ATORVASTATIN 40 MG TABLET PO SCH (10:31)
[2017-01-26] MEDS: METOPROLOL SUCCINATE XL 50 MG TABLET PO SCH (10:31)
[2017-01-26] MEDS: FUROSEMIDE 40 MG/4 ML VIAL IV SCH (10:32)
[2017-01-26] MEDS: ASPIRIN EC 81 MG TABLET PO SCH (10:32)
--- NOTE | 2017-01-26 10:47 | Cardiology Progress Note ---
Do Lock April, RN, am scribing for, and in the presence of, Vipul Mcbride MD 10:47. Assessment and Plan (1) Atrial fibrillation with rapid ventricular response Status: Resolved Current Visit: Yes (2) Chest pain Status: Resolved Current Visit: Yes (3) right lower lobe pneumonia Status: Acute Current Visit: Yes (4) Coronary artery disease Status: Chronic Current Visit: Yes Qualifiers: Coronary Disease-Associated Artery/Lesion type: bypass graft [place] vs. transplanted heart: [place] heart (5) Hyperlipidemia Status: Chronic Current Visit: Yes (6) Hypertension Status: Chronic Current Visit: Yes (7) Morbid obesity with BMI of 50.0-59.9, adult Status: Chronic Current Visit: Yes Cardiology - PN: Subj Interval history: [employer] Administrator: Dr. Mcbride in the remote past PCP: Dr. David SUMMARY: Ms. Kulkarni is a 71 year old female with history of premature coronary artery disease, hypertension, hyperlipidemia, morbid obesity. She is status post coronary artery bypass grafting on 11/26/1997 (at age 51) by Dr. Adams with LUNDBERG to the LAD, Y graft using saphenous vein to the diagonal and circumflex, and single graft to the RCA. She is a lifetime non-smoker. She tells me that she has not followed up with cardiology in over 10 years due to insurance reasons. She last had a normal perfusion study on 10/20/2004. She presented to the emergency room with complaints of cough, dyspnea, and pain in the left upper chest, rapidly onset over the past 24 hours. Her initial temperature was 101 she had a white count of 17. She was admitted for further treatment of right lower lobe pneumonia and we were consulted to see her due to her complaint of chest pain. She complained of left chest wall pain and shoulder hurting with 1 day onset. She also states she was short of breath, more so than usual. She describes her pain as being sharp in quality and isolated to her left chest wall and on top of her left shoulder. She noted that this is very different from the pain that she had before she required coronary artery bypass grafting. She does admit that she has had chronic dyspnea on exertion ever since having bypass surgery and this does not seem to have changed recently. She denies any chest pain on exertion. She does report bilateral lower extremity edema and occasional palpitations (this occurred twice in the month of September and has not occurred since). She reports that prior to admission she "felt bad" 2 nights ago and has been fatigued. She has had 3 sets of negative troponins. Her EKG shows sinus rhythm with nonspecific ST and T-wave abnormality. I am unable to access any prior EKGs for comparison. Her BNP on admission was 108. Creatinine on admission was 0.7. Potassium 4.0. January 26, 2017: Ms. Kulkarni is seen resting in bed no acute distress. Oxygen is in use via nasal cannula and she reports her breathing has improved. She denies any chest pain or palpitations. She reports she continues to be fatigued. She had a run of atrial flutter with heart rates in the 150s by graphics intern last p.m. EKG showed atrial fibrillation with RVR, heart rate of 105. Diltiazem infusion was started. She was already on Toprol 50 mg p.o. daily. She denies any palpitations during this time. This morning she had a 4.4 second pause when she converted from atrial fibrillation to sinus rhythm. She denies any symptoms at that time. Her diltiazem infusion continues at 15 mL/h, graphics intern currently shows sinus rhythm with heart rates in the 60s. She was afebrile during the night. Blood cultures are negative at day 1. Dr. Balderas is seen in consultation and plans to schedule for sleep study. Cardiac biomarkers have continued to increase since admission. She is on Lasix 40 mg IV daily as well as azithromycin IV. Potassium this morning is 3.4. She was given a one-time potassium 20 mEq p.o. Lab data today: White count 18.3 hemoglobin 13.6 hematocrit 40.1 Sodium 141 potassium 3.4 chloride 105 CO2 26 BUN 9 creatinine 0.80 Magnesium 2.2 Triglycerides 79 cholesterol 127 LDL 57 HDL 60 Impression: Chest x-ray showed cardiomegaly and CHF. There is a right lower lobe density, suggestive of pneumonia. Atrial fibrillation with RVR, has converted to sinus rhythm Echocardiogram with ejection fraction of 55%, aortic valve sclerosis, moderate tricuspid valve regurgitation Status post four-vessel CABG in November 26, 1997 with LUNDBERG graft LAD, Y graft to diagonal and circumflex and vein graft to distal right coronary Normal Lexiscan cardiac stress test October 20, 2004, no cardiac follow-up since then Lifetime non-smoker Chronic hypertension Morbid obesity Restless legs IRENE suspected Cardiology addendum Patient examined chart reviewed and discussed with nurse Nayeli Lei RN. Breathing is improving. She converted chemically with IV Cardizem and is now in sinus rhythm. Blood pressure 140/84 Regular rhythm no gallop Decreased breath sounds few rhonchi in the bases Abdomen obese soft benign Chronic leg edema Plan DC IV Cardizem I again discussed cardiac cath with her and her status post four-vessel bypass 1997 Outpatient sleep study 40 mg IV Lasix daily and KCl Exam (Progress Note) - Constitutional Vitals: Period Temp Pulse Resp BP Sys/Grant Pulse Ox Last 24 Hr 96.8 F-99.6 F 67-112 16-24 124-171/56-84 94-100 Exam: General appearance: Pleasant and cooperative. Morbidly obese, no acute distress. - Head Head exam: Present: normal inspection, normocephalic, atraumatic. Absent: hematoma, laceration - Eye Eye exam: Present: EOMI. Absent: conjunctival injection, nystagmus, periorbital swelling, scleral icterus, laceration to eyelids Pupils: Present: PERRL. Absent: constricted, dilated, fixed, irregular, unequal - Neck Neck exam: Present: normal inspection. Absent: tenderness, thyromegaly, carotid bruit - Respiratory Respiratory exam: Present: Clear to auscultation, oxygen in use via nasal cannula. Absent: accessory muscle use, chest wall tenderness. - Cardiovascular Cardiovascular exam: Present: regular rate and rhythm. Absent: gallop, rubs, murmur - GI/Abdominal GI/Abdominal exam: Present: normal bowel sounds, soft. Absent: distended, firm , guarding, hernia, mass, tenderness, rebound. - Extremities Exam Extremities exam: Present: normal inspection, normal capillary refill. Upper extremity pulses 2+. Lower extremity pulses 2+. 2+ pitting edema to BLE. Absent : calf tenderness -Musculoskeletal Exam Musculoskeletal: Present: No Fluid Collection, No Pain, Normal Range of Motion - Back Exam Back exam: Present: normal inspection. Absent: muscle spasm, vertebral tenderness - Neurological Exam Neurological exam: Present: alert, oriented X3, grossly intact without resting or essential tremor - Psychiatric Psychiatric exam: Present: normal affect, normal mood - Skin Skin exam: Present: normal color, warm, dry, intact, scaly patches noted to BLE. Absent: cyanosis, diaphoretic, urticaria Result/EKG - Labs CBC & BMP: 01/26/17 06:25 01/26/17 06:24 Lab Results: I have reviewed the past 24 hour labs Labs: Laboratory Results - last 24 hr 01/25/17 01/25/17 01/26/17 10:43 15:49 06:24 WBC RBC Hgb Hct MCV MCH MCHC RDW Plt Count MPV Neut % (Auto) Lymph % (Auto) [place] % (Auto) Eos % (Auto) Baso % (Auto) Neut # (Auto) Lymph # (Auto) [place] # (Auto) Eos # (Auto) Baso # (Auto) Immature Gran % Nucleated RBC % Immature Gran # Nucleated RBCs # Sodium 141 Potassium 3.4 L Chloride 105 Carbon Dioxide 26 Anion Gap 13.4 BUN 9 Creatinine 0.80 GFR Calculation 112 BUN/Creatinine Ratio 11.00 Glucose 122 H Calculated Osmolality 280.3 Calcium 8.3 L Magnesium 2.2 Total Creatine Kinase 1057 H D 1095 H CK-MB (CK-2) 3.7 H 2.9 Troponin I 0.092 H D 0.107 H Triglycerides 79 Cholesterol 127 LDL Cholesterol 57.0 VLDL Cholesterol 15.8 HDL Cholesterol 60 Heart Disease Risk Ratio 2.12 01/26/17 06:25 WBC 18.3 H RBC 4.34 Hgb 13.6 Hct 40.1 MCV 92.4 MCH 31 MCHC 33.9 RDW 14.5 Plt Count 227 MPV 11.4 Neut % (Auto) 65.6 Lymph % (Auto) 18.6 L [place] % (Auto) 14.9 H Eos % (Auto) 0.1 Baso % (Auto) 0.3 Neut # (Auto) 12.0 H Lymph # (Auto) 3.4 [place] # (Auto) 2.7 H Eos # (Auto) 0.0 Baso # (Auto) 0.1 Immature Gran % 0.5 Nucleated RBC % 0.0 Immature Gran # 0.09 Nucleated RBCs # 0.00 Sodium Potassium Chloride Carbon Dioxide Anion Gap BUN Creatinine GFR Calculation BUN/Creatinine Ratio Glucose Calculated Osmolality Calcium Magnesium Total Creatine Kinase CK-MB (CK-2) Troponin I Triglycerides Cholesterol LDL Cholesterol VLDL Cholesterol HDL Cholesterol Heart Disease Risk Ratio - EKG EKG results: interpreted by me EKG shows: sinus rhythm IReed Thomas, MD, personally performed the services described in this documentation, ascribed by Nayeli Lei RN in my presence, and it is both accurate and complete .
[2017-01-26] MEDS: AZITHROMYCIN INJ 250 MG in SODIUM CHLORIDE 0.9% 250 ML IV SCH (21:04)
[2017-01-27] MEDS: ALBUTEROL/IPRATROPIUM 3 ML NEB RESP TX SCH ×5 (02:55→20:33)
[2017-01-27 05:24] LABS: Basophils # 0.1 10*3/uL (0.0-0.2); Basophils % 0.3 % (0.0-0.8); Eosinophils # 0.1 10*3/uL (0.0-0.87); Eosinophils % 0.6 % (0.00-10.9); Hematocrit 39.3 VOL% (35.7-47.0); Hemoglobin 13.1 GM/DL (12.0-16.0); Immature Granulocytes % 0.6 %; Immature Granulocytes Absolute 0.11 #; Lymphocytes # 2.6 10*3/uL (1.4-4.0); Lymphocytes % 14.4 % (21.3-54.2); Mean Corpuscular HGB Conc 33.3 GM/DL (32-36); Mean Corpuscular Hemoglobin 31 PG (27-34); Mean Corpuscular Volume 93.1 FL (87-102); Monocytes # 2.5 10*3/uL (0.11-0.8); Monocytes % 14.3 % (1.7-12.7); Neutrophils # 12.4 10*3/uL (1.4-7.4); Neutrophils % 69.8 % (38.7-73.9); Platelet Count 228 T/CUMM (130-400); Red Blood Count 4.22 MC/CUMM (3.8-5.5); Red Cell Distribution Width 14.6 % (9.3-17.3); White Blood Count 17.7 T/CUMM (4-12)
[2017-01-27 05:58] LABS: Free T4 (Free Thyroxine) 1.11 NG/DL (0.76-1.46); Thyroid Stimulating Hormone 1.38 uIU/ml (0.358-3.74)
[2017-01-27 06:06] LABS: Calcium 8.5 MG/DL (8.5-10.1); Magnesium 2.3 MG/DL (1.8-2.4); Osmolality,Calculated 279.4 MOS/KG (273-304); Potassium 3.5 MMOL/L (3.5-5.1)
--- NOTE | 2017-01-27 08:28 | Family Practice Progress Note ---
Family Practice - PN: Subj Interval history: Patient states she feels some better but is still very weak. Has had minimal cough. Patient had a run of atrial fibrillation during the night. She was started on Cardizem and is now back in normal sinus rhythm. Appreciate consultants input. I have discussed with Dr. Mcbride and agrees that patient needs cardiac catheterization. He plans to do that after patient improves. Her a.m. labs are stable except her WBC still elevated at 18,300 with a potassium of 3.4. Her enzymes have elevated since admission. Blood cultures are negative. Her lung barajas are clear to auscultation this a.m.. We will continue present evaluation and treatment 01/27/17 patient states that she feels some better but has been coughing frequently. States her cough is nonproductive in nature. Denies any dyspnea. Denies any chest pain. Staff reports that she has been in normal sinus rhythm. She was scheduled to have a chest x-ray this a.m. which is pending at the time of this dictation. I will review when available. Trying to clear pneumonia so that she can have a cardiac catheterization later this week. Her a.m. labs revealed a WBC of 17,700 which is slightly improved from yesterday. Other labs are stable. Her lung barajas are clear to auscultation. Will continue present treatment plan and review x-rays. Exam (Progress Note) - Constitutional Vitals: Period Temp Pulse Resp BP Sys/Grant Pulse Ox Last 24 Hr 97.9 F-99.5 F 64-80 16-24 137-184/61-87 90-99 Results - Labs CBC & BMP: 01/27/17 04:47 01/27/17 04:47 Assessment and Plan (1) right lower lobe pneumonia Status: Acute Assessment and plan: We will admit and start on empiric antibiotic therapy Current Visit: Yes (2) status post coronary artery bypass graft Status: Chronic Assessment and plan: We'll consult cardiology since patient has not been seen in years for follow-up Current Visit: Yes (3) Coronary artery disease Status: Chronic Assessment and plan: We'll ask cardiology to a bowel patient who has not been followed for years for coronary artery disease Current Visit: Yes Qualifiers: Coronary Disease-Associated Artery/Lesion type: bypass graft [place] vs. transplanted heart: [place] heart (4) Hypertension Status: Chronic Assessment and plan: Stable on present medication Current Visit: Yes (5) Unspecified sleep apnea Status: Chronic Assessment and plan: We will consult Dr. Balderas to evaluate Current Visit: Yes (6) Morbid obesity with BMI of 50.0-59.9, adult Status: Chronic Assessment and plan: Has been very difficult to have patient lose any meaningful weight Current Visit: Yes (7) Hyperlipidemia Status: Chronic Assessment and plan: Stable on present medication Current Visit: Yes
--- NOTE | 2017-01-27 08:38 | Cardiology Progress Note ---
Assessment and Plan (1) Atrial fibrillation with rapid ventricular response Status: Resolved Current Visit: Yes (2) Chest pain Status: Resolved Current Visit: Yes (3) right lower lobe pneumonia Status: Acute Current Visit: Yes (4) Coronary artery disease Status: Chronic Current Visit: Yes Qualifiers: Coronary Disease-Associated Artery/Lesion type: bypass graft [place] vs. transplanted heart: [place] heart (5) Hyperlipidemia Status: Chronic Current Visit: Yes (6) Hypertension Status: Chronic Current Visit: Yes (7) Morbid obesity with BMI of 50.0-59.9, adult Status: Chronic Current Visit: Yes Cardiology - PN: Subj Interval history: Cardiology note 71-year-old woman admitted with cardiomegaly and CHF and right lower lobe pneumonia. Patient developed paroxysmal atrial fibrillation and converted with IV Cardizem Still dyspneic with activity. Nonproductive cough. No fever or chills. O2 sat 97% on 2 L Blood pressure running a little high 152/90 in the right arm by me Regular rhythm no murmur Decreased breath sounds bilaterally Abdomen obese Chronic leg edema Lab data today White count 17.7 hemoglobin 13.1 hematocrit 39.3 Sodium 140 potassium 3.5 chloride 104 CO2 23 BUN 13 creatinine 0.80 glucose 119 magnesium 2.3 Impression Cardiomegaly and CHF Right lower lobe pneumonia paroxysmal Atrial fibrillation converted to sinus with IV Cardizem Echo showed ejection fraction 55% with aortic valve sclerosis and moderate TR, PA pressure 50 Status post four-vessel CABG November 26, 1997 LUNDBERG graft to LAD, Y graft to diagonal and circumflex and vein graft distal right coronary Normal Lexiscan cardiac stress test October 20, 2004, no cardiac follow-up since then lifetime non-smoker Morbid obesity Restless legs IRENE suspected Chronic hypertension Plan Outpatient sleep study Continue antibiotics and nebs and supplemental O2 40 mg IV Lasix 40 mEq KCl daily Begin lisinopril 10 mg daily Cardiac cath later this week Exam (Progress Note) - Constitutional Vitals: Period Temp Pulse Resp BP Sys/Grant Pulse Ox Last 24 Hr 97.9 F-99.5 F 64-80 16-24 137-184/61-87 90-99 Result/EKG - Labs CBC & BMP: 01/27/17 04:47 01/27/17 04:47 Labs: Laboratory Results - last 24 hr 01/27/17 01/27/17 01/27/17 04:47 04:47 04:47 WBC 17.7 H RBC 4.22 Hgb 13.1 Hct 39.3 MCV 93.1 MCH 31 MCHC 33.3 RDW 14.6 Plt Count 228 MPV 12.0 Neut % (Auto) 69.8 Lymph % (Auto) 14.4 L [place] % (Auto) 14.3 H Eos % (Auto) 0.6 Baso % (Auto) 0.3 Neut # (Auto) 12.4 H Lymph # (Auto) 2.6 [place] # (Auto) 2.5 H Eos # (Auto) 0.1 Baso # (Auto) 0.1 Immature Gran % 0.6 Nucleated RBC % 0.0 Immature Gran # 0.11 Nucleated RBCs # 0.00 Sodium 140 Potassium 3.5 Chloride 104 Carbon Dioxide 23 Anion Gap 16.5 H BUN 13 Creatinine 0.80 GFR Calculation 111 BUN/Creatinine Ratio 16.00 Glucose 119 H Calculated Osmolality 279.4 Calcium 8.5 Magnesium 2.3 Free T4 1.11 TSH 3rd Generation 1.380
[2017-01-27] MEDS: ATORVASTATIN 40 MG TABLET PO SCH (09:22)
[2017-01-27] MEDS: amLODIPine 10 MG TABLET PO SCH (09:23)
[2017-01-27] MEDS: CLOPIDOGREL 75 MG TABLET PO SCH (09:23)
[2017-01-27] MEDS: LISINOPRIL 10 MG TABLET PO SCH (09:23)
[2017-01-27] MEDS: ASPIRIN EC 81 MG TABLET PO SCH (09:23)
[2017-01-27] MEDS: DOCUSATE SODIUM 100 MG CAPSULE PO SCH ×2 (09:23→21:09)
[2017-01-27] MEDS: FUROSEMIDE 40 MG/4 ML VIAL IV SCH (09:23)
[2017-01-27] MEDS: POTASSIUM CHLORIDE 20 MEQ TABLET PO SCH (09:23)
[2017-01-27] MEDS: METOPROLOL SUCCINATE XL 50 MG TABLET PO SCH (09:23)
[2017-01-27] MEDS: PANTOPRAZOLE 40 MG TABLET PO SCH (09:24)
[2017-01-27] MEDS: BENZONATATE 100 MG CAPSULE PO SCH ×3 (09:25→21:09)
--- NOTE | 2017-01-27 10:33 | XRay Report ---
XR chest 1V portable Indication: Pneumonia Comparison: 24 January 2017 Findings: The heart and mediastinum are stable in size and configuration. The pulmonary vascularity is slightly increased with bilateral increased interstitial lung density. No other lung infiltrates, effusions, pneumothorax or other abnormality is demonstrated. Impression: Findings suggest mild cardiac decompensation similar to previous study. No new findings or other abnormality seen. PROCEDURE INTERPRETED AT [facility] DEPARTMENT OF RADIOLOGY Final Report Signed by: Dr. Troy Nolasco
[2017-01-27] MEDS: AZITHROMYCIN INJ 250 MG in SODIUM CHLORIDE 0.9% 250 ML IV SCH (21:09)
[2017-01-28] MEDS: ALBUTEROL/IPRATROPIUM 3 ML NEB RESP TX SCH ×7 (00:03→23:45)
[2017-01-28 06:18] LABS: Basophils # 0.1 10*3/uL (0.0-0.2); Basophils % 0.5 % (0.0-0.8); Eosinophils # 0.2 10*3/uL (0.0-0.87); Eosinophils % 2.2 % (0.00-10.9); Hematocrit 39.4 VOL% (35.7-47.0); Hemoglobin 12.7 GM/DL (12.0-16.0); Immature Granulocytes % 0.4 %; Immature Granulocytes Absolute 0.04 #; Lymphocytes # 2.2 10*3/uL (1.4-4.0); Lymphocytes % 21.1 % (21.3-54.2); Mean Corpuscular HGB Conc 32.2 GM/DL (32-36); Mean Corpuscular Hemoglobin 31 PG (27-34); Mean Corpuscular Volume 96.3 FL (87-102); Mean Platelet Volume 11.9 FL (9.6-12.0); Monocytes # 1.5 10*3/uL (0.11-0.8); Monocytes % 14.7 % (1.7-12.7); Neutrophils # 6.3 10*3/uL (1.4-7.4); Neutrophils % 61.1 % (38.7-73.9); Platelet Count 210 T/CUMM (130-400); Red Blood Count 4.09 MC/CUMM (3.8-5.5); Red Cell Distribution Width 14.6 % (9.3-17.3); White Blood Count 10.2 T/CUMM (4-12)
[2017-01-28 06:32] LABS: Calcium 8.4 MG/DL (8.5-10.1); Magnesium 2.1 MG/DL (1.8-2.4); Osmolality,Calculated 279.4 MOS/KG (273-304); Potassium 3.7 MMOL/L (3.5-5.1)
--- NOTE | 2017-01-28 08:14 | Internal Med Progress Note ---
Assessment and Plan (1) right lower lobe pneumonia Status: Acute Assessment and plan: 71-year-old female admitted to acute care * Right lower lobe pneumonia. Patient is on antibiotics and respiratory treatment * CHF. Patient with preserved ejection fraction. Continue current treatment * Atrial fibrillation with rapid ventricular rate. Resolved * Hypertension. Blood pressure is stable * Continue current management Current Visit: Yes (2) Coronary artery disease Status: Chronic Current Visit: Yes Qualifiers: Coronary Disease-Associated Artery/Lesion type: bypass graft [place] vs. transplanted heart: [place] heart (3) Hyperlipidemia Status: Chronic Current Visit: Yes (4) Hypertension Status: Chronic Current Visit: Yes (5) Morbid obesity with BMI of 50.0-59.9, adult Status: Chronic Current Visit: Yes (6) Unspecified sleep apnea Status: Chronic Current Visit: Yes (7) status post coronary artery bypass graft Status: Chronic Current Visit: Yes Internal Medicine - PN: Subj Interval history: Patient seen and examined. Chart reviewed. 71-year-old female with history of congestive heart failure, coronary artery disease, right lower lobe pneumonia who was admitted with shortness of breath. She feels a little better this morning. She still has shortness of breath. She denies any nausea or vomiting Exam (Progress Note) - Constitutional Vitals: Period Temp Pulse Resp BP Sys/Grant Pulse Ox Last 24 Hr 97.7 F-98.9 F 65-81 16-22 125-160/55-82 91-98 Exam: Examination: GENERAL: Morbidly obese NECK: Neck is supple. CVS: Regular rate and rhythm. S1 and S2 are normal. RESPIRATORY: Decreased air entry especially in the right base ABDOMEN: Soft and nontender. Morbidly obese EXT: 2+ edema MISSION ANALYST: Nonfocal SKIN: Warm and dry. MSK: No obvious deformity. Results - Labs CBC & BMP: 01/28/17 05:46 01/28/17 05:46 Lab Results: I have reviewed the past 24 hour labs
[2017-01-28] MEDS: DOCUSATE SODIUM 100 MG CAPSULE PO SCH ×2 (08:35→21:03)
[2017-01-28] MEDS: ATORVASTATIN 40 MG TABLET PO SCH (08:35)
[2017-01-28] MEDS: CLOPIDOGREL 75 MG TABLET PO SCH (08:35)
[2017-01-28] MEDS: POTASSIUM CHLORIDE 20 MEQ TABLET PO SCH (08:35)
[2017-01-28] MEDS: amLODIPine 10 MG TABLET PO SCH (08:36)
[2017-01-28] MEDS: ASPIRIN EC 81 MG TABLET PO SCH (08:36)
[2017-01-28] MEDS: PANTOPRAZOLE 40 MG TABLET PO SCH (08:36)
[2017-01-28] MEDS: LISINOPRIL 10 MG TABLET PO SCH ×2 (08:36→21:03)
[2017-01-28] MEDS: BENZONATATE 100 MG CAPSULE PO SCH ×3 (08:36→21:03)
[2017-01-28] MEDS: FUROSEMIDE 40 MG/4 ML VIAL IV SCH ×2 (08:37→15:59)
[2017-01-28] MEDS: METOPROLOL SUCCINATE XL 50 MG TABLET PO SCH (08:37)
--- NOTE | 2017-01-28 09:31 | Cardiology Progress Note ---
Assessment and Plan (1) Atrial fibrillation with rapid ventricular response Status: Resolved Current Visit: Yes (2) Chest pain Status: Resolved Current Visit: Yes (3) right lower lobe pneumonia Status: Acute Current Visit: Yes (4) Coronary artery disease Status: Chronic Current Visit: Yes Qualifiers: Coronary Disease-Associated Artery/Lesion type: bypass graft [place] vs. transplanted heart: [place] heart (5) Hyperlipidemia Status: Chronic Current Visit: Yes (6) Hypertension Status: Chronic Current Visit: Yes (7) Morbid obesity with BMI of 50.0-59.9, adult Status: Chronic Current Visit: Yes Cardiology - PN: Subj Interval history: Cardiology note 71-year-old woman admitted with right lower lobe pneumonia and CHF. Also had atrial fib that converted with IV Cardizem. No temperature. O2 sat 93 on 2 L cannula Weight 164.8 kg Blood culture growing gram-positive cocci. Micro reports MRSA negative. Telemetry shows sinus rhythm in the 80s Blood pressure 156/84 Regular rhythm no murmur Decreased breath sounds but fairly clear Obese abdomen with large panniculus Chronic leg edema Lab data today hemoglobin 12.7 hematocrit 39.4 white count 10.2 Sodium 140 potassium 3.7 chloride 108 CO2 22 BUN 13 creatinine 0.6 glucose 111 magnesium 2.1 Impression Cardiomegaly and CHF Right lower lobe pneumonia Paroxysmal atrial fibrillation converted to sinus with IV Cardizem Echo showed ejection fraction 55% with aortic valve sclerosis and moderate TR PA pressure 50 Status post four-vessel CABG November 26, 1997 with LUNDBERG graft to LAD, Y graft to diagonal and circumflex, and vein graft to right coronary Normal Lexiscan cardiac stress test October 20, 2004, no cardiac follow-up since then Lifetime non-smoker Morbid obesity Restless legs Chronic hypertension IRENE suspected Positive blood cultures for gram-positive cocci, micro reports MRSA negative. Plan Consult ID Increase Lasix 40 mg IV twice daily Increase lisinopril 10 mg twice daily BMP in a.m. Exam (Progress Note) - Constitutional Vitals: Period Temp Pulse Resp BP Sys/Grant Pulse Ox Last 24 Hr 97.7 F-98.9 F 65-81 16-22 125-166/55-82 91-98 Result/EKG - Labs CBC & BMP: 01/28/17 05:46 01/28/17 05:46 Labs: Laboratory Results - last 24 hr 01/28/17 01/28/17 05:46 05:46 WBC 10.2 D RBC 4.09 Hgb 12.7 Hct 39.4 MCV 96.3 MCH 31 MCHC 32.2 RDW 14.6 Plt Count 210 MPV 11.9 Neut % (Auto) 61.1 Lymph % (Auto) 21.1 L Smyth % (Auto) 14.7 H Eos % (Auto) 2.2 Baso % (Auto) 0.5 Neut # (Auto) 6.3 Lymph # (Auto) 2.2 Smyth # (Auto) 1.5 H Eos # (Auto) 0.2 Baso # (Auto) 0.1 Immature Gran % 0.4 Nucleated RBC % 0.0 Immature Gran # 0.04 Nucleated RBCs # 0.00 Sodium 140 Potassium 3.7 Chloride 108 H Carbon Dioxide 22 Anion Gap 13.7 BUN 13 Creatinine 0.60 GFR Calculation 138 BUN/Creatinine Ratio 21.00 H Glucose 111 H Calculated Osmolality 279.4 Calcium 8.4 L Magnesium 2.1
--- NOTE | 2017-01-28 15:55 | Infectious Disease Consult ---
Assessment and Plan (1) Pneumonia Status: Acute Assessment and plan: Suspect more bronchitis rather than pneumonia. The patient has improved with just azithromycin, with resolved fever and leukocytosis. Continue azithromycin therapy for a few more days. Current Visit: Yes (2) Coronary artery disease Status: Chronic Current Visit: Yes Qualifiers: Coronary Disease-Associated Artery/Lesion type: bypass graft [place] vs. transplanted heart: [place] heart (3) Hyperlipidemia Status: Chronic Current Visit: Yes (4) Hypertension Status: Chronic Current Visit: Yes (5) Morbid obesity with BMI of 50.0-59.9, adult Status: Chronic Current Visit: Yes (6) Positive blood culture Status: Acute Assessment and plan: Most likely contamination with 2 different coag. neg. staph. spp in 1 set of cultures. Given her size, she is a hard "stick." Recommendations: 1. Repeat blood cultures to document sterility 2. Will not start vancomycin as suspicion for true infection is very low. Thank you very much for the consult. Discussed with patient's and daughter at bedside Discussed with Dr. Mcbride Current Visit: Yes History of Present Illness Chief complaint: Positive blood culture History of present illness: Ms. Kulkarni is a 71 year old female admitted 4 days ago with fever, SOB and chest pain. Fever was 10 on admission however she has not spiked since then. Her blood cell count was 17. Patient had blood cultures done and 1 of 2 sets came up positive for 2 different staph epi isolates. She was felt to have possible pneumonia on admission and started on azithromycin. Overall she has improved with normalization of the white blood cell count and is a says she has not had any more fever. She still coughing with yellowish sputum production but that has improved and she is less short of breath and no longer has chest pain. Am asked advice on therapy of the positive blood culture. Home Medications Medication Instructions Recorded Confirmed Type Amlodipine Besylate [Amlodipine 10 mg PO DAILY 01/25/17 01/25/17 History Besylate] Aspirin [Ecotrin] 81 mg PO DAILY 01/25/17 01/25/17 History Atorvastatin [Lipitor] 40 mg PO DAILY 01/25/17 01/25/17 History Clopidogrel Bisulfate [Clopidogrel] 75 mg PO DAILY 01/25/17 01/25/17 History Furosemide [Furosemide] 40 mg PO DAILY 01/25/17 01/25/17 History Metoprolol Succinate 25 mg PO DAILY 01/25/17 01/25/17 History raNITIdine HCl [Ranitidine HCl] 300 mg PO DAILY 01/25/17 01/25/17 History Allergies Allergy/AdvReac Type Severity Reaction Status Date / Time allopurinol Allergy HIVES Verified 01/24/17 18:34 pregabalin [From Lyrica] Allergy HIVES Verified 01/24/17 18:34 12 point system: reviewed and no additional remarkable complaints except as stated (per HPI) Medical,Surgical,& Family Hx - Medical History Cardio: History of: CAD, Hypertension, Cardiovascular Problems HEENT: History of: Eye Problem Endocrine: History of: Dyslipidemia Musculoskeletal: History of: Musculoskeletal Problems - Surgical History Cardiac Surgeries: Sugical HX of: Cardiac Catheterization, Cardiac Surgery Thoracic Surgeries: Patient denies;: Organ Transplant, Lobectomy Neurologic Surgeries: Patient denies: Neurologic Surgery Abdominal Surgeries: Patient denies: Abdominal Surgery Reproductive Surgeries: Surgical HX of;: Hysterectomy Patient denies;: Genitourinary Surgery Orthopedic Surgeries: Surgical HX of;: Total Knee Replacement - Social History Smoking Status: Never smoker Frequency of Alcohol Use: None Type of Drug Use: None Infectious Disease Exam H&P - Constitutional Vitals: Vital Signs Temp Pulse Resp BP Pulse Ox 97.3 F L 67 20 166/88 96 01/28/17 11:05 01/28/17 11:05 01/28/17 11:05 01/28/17 11:05 01/28/17 11:05 Intake and Output 01/27/17 01/28/17 01/28/17 23:59 07:59 15:59 Intake Total 555 / 555 365 / 365 360 / 360 Output Total 350 / 350 350 / 350 Balance 205 / 205 15 360 / 360 Intake: IV 375 / 375 125 / 125 Zithromax Inj 250 mg In 375 / 375 125 / 125 Ns 250 ml @ 250 mls/hr IV Q24H RAKAN Rx#:[id number] Oral 180 / 180 240 / 240 360 / 360 Output: Urine 350 / 350 350 / 350 Other: Voiding Method Bedside Commode Bedside Commode Bedside Commode # Voids 1 1 # Bowel Movements 2 Weight 164.881 kg Patient Weight 01/28/17 23:59 Weight 164.881 kg Exam: General: Patient relatively comfortable but slightly tachypneic, she is morbidly obese HEENT: Mucous membranes pink and moist, anicteric acyanotic, DELL, no oral exudates Neck: Supple, no thyroid gland enlargement Respiratory system: Breath sounds vesicular, no crepitations or wheezes Cardiovascular: Normal S1 and S2, no murmurs appreciated Abdomen: Normal bowel sounds, soft nontender throughout, no organomegaly or mass Genitourinary: No suprapubic pain or bladder distention Extremities: no edema, extremely long great toenails Skin: No rash Reports - Labs CBC & BMP: 01/28/17 05:46 01/28/17 05:46 Labs: Laboratory Results - last 24 hr 01/28/17 01/28/17 05:46 05:46 WBC 10.2 D RBC 4.09 Hgb 12.7 Hct 39.4 MCV 96.3 MCH 31 MCHC 32.2 RDW 14.6 Plt Count 210 MPV 11.9 Neut % (Auto) 61.1 Lymph % (Auto) 21.1 L Bland % (Auto) 14.7 H Eos % (Auto) 2.2 Baso % (Auto) 0.5 Neut # (Auto) 6.3 Lymph # (Auto) 2.2 Bland # (Auto) 1.5 H Eos # (Auto) 0.2 Baso # (Auto) 0.1 Immature Gran % 0.4 Nucleated RBC % 0.0 Immature Gran # 0.04 Nucleated RBCs # 0.00 Sodium 140 Potassium 3.7 Chloride 108 H Carbon Dioxide 22 Anion Gap 13.7 BUN 13 Creatinine 0.60 GFR Calculation 138 BUN/Creatinine Ratio 21.00 H Glucose 111 H Calculated Osmolality 279.4 Calcium 8.4 L Magnesium 2.1 - Reports Microbiology: Microbiology 01/24/17 21:57 Blood Culture - Final Blood Staphylococcus epidermidis Staphylococcus epidermidis#2 01/24/17 22:02 Blood Culture - Preliminary Blood No growth at 3 days - Diagnostic Findings Procedure: Chest x-ray: image reviewed by me, report reviewed by me (Increased interstitial markings, no definite consolidation)
--- NOTE | 2017-01-28 16:32 | Physician Query Form ---
CLICK EDIT DOCUMENT TO SELECT QUERY ANSWER --> OK --> SIGN Hazel George RN Clinical Tank Cleaner W) [phone] (f) [phone] [email or web address] PROVIDERS: Make your selection(s) from the choices in EACH section by typing an "x" and enter comments in the comment section. Please use your independent medical judgment in providing your response. This request does not imply that any particular answer is desired or expected. CLINICAL INDICATORS: (Providers should not edit this section) Based on documentation of "CHF" Echo shows EF 55%. Grade 2/4 Diastolic dysfunction. BNP 108. Treated with IV Lasix. Please provide further specificity regarding CHF. ACUITY: (x ) Acute ( ) Chronic ( ) Acute on Chronic ( ) Clinicallly unable to determine TYPE: ( ) Systolic (HFrEF - heart failure with reduced systolic function/EF) ( x) Diastolic (HFpEF - heart failure with preserved systolic function/EF) ( ) Combined Systolic/Diastolic ( ) Other, please specify: ( ) Clinically unable to determine ( ) The patient does NOT have CHF COMMENTS: PLEASE ALSO DOCUMENT RESPONSE IN PROGRESS NOTES AND/OR DISCHARGE SUMMARY Use of terms such as suspected, likely, or probable (associated with a specific diagnosis that is being evaluated, monitored, or treated as if it exists) are acceptable and can be restated in the discharge summary if not ruled out. MTDD
[2017-01-28] MEDS: AZITHROMYCIN INJ 250 MG in SODIUM CHLORIDE 0.9% 250 ML IV SCH (21:04)
[2017-01-29] MEDS: ALBUTEROL/IPRATROPIUM 3 ML NEB RESP TX SCH ×5 (03:16→19:52)
[2017-01-29] MEDS ORDERED: diphenhydrAMINE CAP 25 MG CAPSULE PO ONE (07:18)
[2017-01-29] MEDS ORDERED: MAGNESIUM SULF RIDER 2 GM in PREMIX 1 EACH IV PRN (07:18)
[2017-01-29] MEDS ORDERED: DIAZEPAM 5 MG TABLET PO ONE (07:18)
[2017-01-29] MEDS ORDERED: POTASSIUM CHLORIDE RIDER 10 MEQ in PREMIX 1 EACH IV PRN (07:18)
[2017-01-29] MEDS ORDERED: SODIUM CHLORIDE 0.45% 1,000 ML IV SCH (07:30)
--- NOTE | 2017-01-29 07:40 | History and Physical Update ---
Sedation H&P Update - History and Physical H&P was reviewed, the patient examined and there: are no changes in the patients condition since last H&P was completed. - Dictation Physical: refer to H&P completed by admitting physician - Physical Exam Mental Status: alert and oriented Heart: regular rate and rhythm Lung: other (She has rales) Abdomen: within normal limits Vitals: within normal limits History and Physical Changes: This patient I have seen before. I perform PCI to an unknown vessel at [facility] in 2009 with a 3.0 x 18 mm science drug-eluting stent. She has been lost to follow-up for some time. - Sedation Plan for Sedation: moderate Patient Consent: Procedure disscussed with patient and patinet has consented., Risks and benefits were discussed with patient,including infection,, bleeding, injury to surrounding structures, seizure, temporary nerve, Patient understands and accepts potential risks/benefits and agrees to, proceed. ASA Class: III Airway Assessment: Class IV: Only hard palate visible
[2017-01-29] MEDS: ASPIRIN EC 81 MG TABLET PO SCH (08:12)
[2017-01-29] MEDS: DOCUSATE SODIUM 100 MG CAPSULE PO SCH ×2 (08:12→20:22)
[2017-01-29] MEDS: CLOPIDOGREL 75 MG TABLET PO SCH (08:13)
[2017-01-29] MEDS: LISINOPRIL 10 MG TABLET PO SCH ×2 (08:13→20:23)
[2017-01-29] MEDS: POTASSIUM CHLORIDE 20 MEQ TABLET PO SCH (08:13)
[2017-01-29] MEDS: ATORVASTATIN 40 MG TABLET PO SCH (08:13)
[2017-01-29] MEDS: amLODIPine 10 MG TABLET PO SCH (08:13)
[2017-01-29] MEDS: METOPROLOL SUCCINATE XL 50 MG TABLET PO SCH (08:14)
[2017-01-29] MEDS: PANTOPRAZOLE 40 MG TABLET PO SCH (08:14)
[2017-01-29] MEDS: BENZONATATE 100 MG CAPSULE PO SCH ×3 (08:14→20:22)
--- NOTE | 2017-01-29 08:20 | Internal Med Progress Note ---
Assessment and Plan (1) right lower lobe pneumonia Status: Acute Assessment and plan: 71-year-old female admitted to acute care * Right lower lobe pneumonia. Continue azithromycin * CHF. Patient with preserved ejection fraction. Patient will have cardiac catheterization today * Atrial fibrillation with rapid ventricular rate. Resolved * Hypertension. Blood pressure is stable * Continue current management * Discussed with patient and her Current Visit: Yes (2) Coronary artery disease Status: Chronic Current Visit: Yes Qualifiers: Coronary Disease-Associated Artery/Lesion type: bypass graft [place] vs. transplanted heart: [place] heart (3) Hyperlipidemia Status: Chronic Current Visit: Yes (4) Hypertension Status: Chronic Current Visit: Yes (5) Morbid obesity with BMI of 50.0-59.9, adult Status: Chronic Current Visit: Yes (6) Unspecified sleep apnea Status: Chronic Current Visit: Yes (7) status post coronary artery bypass graft Status: Chronic Current Visit: Yes Internal Medicine - PN: Subj Interval history: Patient is still coughing up yellowish phlegm. She denies any chest pain. She does have shortness of breath. Patient had positive blood cultures. Exam (Progress Note) - Constitutional Vitals: Period Temp Pulse Resp BP Sys/Grant Pulse Ox Last 24 Hr 97.3 F-98.5 F 61-81 16-20 130-166/56-88 91-99 Exam: Examination: GENERAL: Morbidly obese NECK: Neck is supple. CVS: Regular rate and rhythm. RESPIRATORY: Decreased air entry especially in the right base ABDOMEN: Soft and nontender. Morbidly obese EXT: 2+ edema DISTRIBUTION CENTER SUPERVISOR: Nonfocal Results - Labs CBC & BMP: 01/28/17 05:46 01/28/17 05:46 Lab Results: I have reviewed the past 24 hour labs
[2017-01-29] MEDS: FUROSEMIDE 40 MG/4 ML VIAL IV SCH ×2 (09:18→17:16)
[2017-01-29] MEDS ORDERED: LIDOCAINE 1% 20 ML VIAL ONE (10:07)
[2017-01-29] MEDS ORDERED: HEPARIN/NACL 0.9% 2 UNITS/ML 1,000 ML IV ONE (10:07)
[2017-01-29] MEDS ORDERED: fentaNYL 100 MCG/2 ML VIAL ONE (11:05)
[2017-01-29] MEDS ORDERED: MIDAZOLAM 2 MG/2 ML VIAL ONE ×3 (11:05→11:59)
[2017-01-29] MEDS ORDERED: HEPARIN 5,000 UNIT/1 ML VIAL ONE ×2 (11:34→11:53)
--- NOTE | 2017-01-29 11:39 | Infectious Disease Progress ---
Assessment and Plan (1) Pneumonia Status: Acute Assessment and plan: Suspect more bronchitis rather than pneumonia. The patient has improved with just azithromycin, with resolved fever and leukocytosis. Continue azithromycin therapy for 5 days total. Current Visit: Yes (2) Coronary artery disease Status: Chronic Current Visit: Yes Qualifiers: Coronary Disease-Associated Artery/Lesion type: bypass graft [place] vs. transplanted heart: [place] heart (3) Hyperlipidemia Status: Chronic Current Visit: Yes (4) Hypertension Status: Chronic Current Visit: Yes (5) Morbid obesity with BMI of 50.0-59.9, adult Status: Chronic Current Visit: Yes (6) Positive blood culture Status: Acute Assessment and plan: Most likely contamination with 2 different coag. neg. staph. spp in 1 set of cultures. She is clinically doing better without specific treatment for these organisms Recommendations: Can follow-up repeat blood cultures. She will not be given vancomycin. I will sign off now. Call again as needed. Discussed with patient's Current Visit: Yes Infectious Disease - PN: Subj Interval history: Patient doing relatively okay only complaint is that she did not get any sleep last night. She has not any fever. Breathing is better with less coughing. She is awaiting cardiac catheterization today. Infectious Disease Exam (PN) - Constitutional Vitals: Temp Pulse Resp BP Pulse Ox 98.5 F 68 18 148/67 95 01/29/17 08:00 01/29/17 08:00 01/29/17 10:23 01/29/17 08:00 01/29/17 08:00 General appearance: mild distress Exam: General appearance: no acute distress - Eye Eye exam: Present: EOMI. no icterus Pupils: Present: DELL - ENT ENT exam: no oral exudates - Respiratory Respiratory exam: vesicular BS, no crepitations or wheezes - Cardiovascular Cardiovascular exam: regular rate and rhythm, no murmurs - GI/Abdominal GI/Abdominal exam: normal bowel sounds, soft, non-tender, no organomegaly or mass - Extremities Exam Extremities exam: Moderate bilateral lower extremity edema - Skin Skin exam: no rash Results - Labs CBC & BMP: 01/28/17 05:46 01/28/17 05:46 Lab Results: I have reviewed the past 24 hour labs (Blood cultures from yesterday pending)
[2017-01-29] MEDS ORDERED: HEPARIN/NACL 0.9% 2 UNITS/ML 500 ML IV ONE (11:41)
[2017-01-29] MEDS ORDERED: CLOPIDOGREL 300 MG TABLET ONE (12:06)
--- NOTE | 2017-01-29 12:34 | Cardiac Catheterization ---
Date of Procedure:: 01/29/17 Pre-op Diagnosis: Chest pain with known coronary artery disease Post-op diagnosis: same Procedure: Procedures: 1. Left heart catheterization resting hemodynamics 2. Selective left and right coronary angiography 3. Selective saphenous vein graft injection to the RCA 4. Selective vein graft injection Y graft to OM1 and OM 2 5. Selective ANA CRISTINA in situ graft injection 6. Right femoral iliac angiography 7. Closure right femoral arteriotomy with minx closure device 8. PCI of assess vein graft RCA with a 3.5 x 18 mm Xience drug-eluting stent After consent was taken from the patient. Taken to the catheterization lab for left heart catheterization via the femoral artery. Time out was taken and recorded. 1% lidocaine was infiltrated in the skin and subcutaneous tissue overlying the right femoral artery. Modified Seldinger technique and an 18- gauge MedHab needle was used for access to the right femoral artery. An 0.35 J- wire was advanced through the needle into the central aorta under fluoroscopy. A small skin was made and a 6 Urdu sheath was placed over the wire. The sheath was aspirated and flushed. A JL46 was advanced over the wires in the left main coronary artery was selectively engaged. Multiple orthogonal views of the left system were obtained. The catheter was then exchanged over the wire. The sheath was aspirated and flushed. A JR4 catheter was advanced over the wire into the central aorta. The right coronary was selectively engaged and orthogonal views of the right coronary artery were obtained. The catheter was then exchanged over the wire, the sheath was aspirated and flushed. At this time an angled pigtail catheter was advanced across the aortic valve into the ventricle. Pressure measurements were obtained and a cine ventriculogram was performed in the ROBERTS projection with 10 mL/s for a total of 30 mL of contrast. Pullback measurements were performed. The seal mixing operator reviewed the films. The room was set up for the intervention mode and the patient was given 5000 units of intravenous heparin and ACT was only 140 additional 4000 were given and ACT was only 160 an additional 5 pounds were given in the patient's ACT was finally acceptable for PCI. At this time and multipurpose guide was advanced into the central aorta and the saphenous vein graft to the RCA was selectively engaged. A small filter wire would not pass a high-grade stenosis it was removed and a 180 cm pro-water wire was advanced across high-grade stenosis into the distal RCA and the area was direct stented with a 3.5 by 18 mm Xience drug-eluting stent.. The patient had no problems with reflow 2 orthogonal views were obtained the wire was removed the cath was exchanged over the wire. The sheath was aspirated and flushed and a right femoral and iliac angiography was performed. The access site was amenable for closure and the area was reprepped with ChloraPrep and draped with sterile towels. The Angio-Seal closure device was used in standard technique. There was no hematoma and distal pulses were good. Total diagnostic fluoroscopy time 5.5 minutes with total fluoroscopy dose 703 mGy. Total contrast exposure 160 cc of Omnipaque FINDINGS: LV: 155/11 LVEDP: 26 Ao:149/70 EF: Not assessed LM: The left main is short and angiographically normal. LAD: There are diffuse mild luminal irregularities in LAD the previously deployed 3.0 stent is widely patent. There is no high-grade epicardial stenosis and NGOC-3 flow. Left internal mammary artery in situ to the LAD contributes minimally and has no meaningful contribution to its distribution. LCx: Left circumflex artery from the LAD is small after take a very small first obtuse marginal there is diffuse heavily diseased at this segment. The distal segments are supplied by the Y graft. Saphenous vein Y graft to OM 1 and 2 are widely patent and supplies the entirety of the distribution of the left circumflex system including that this high-grade stenosed in the AV groove portion. The vein graft is nice RCA: This vessel is 100% occluded proximally. There is a vein graft to the crux of the PDA/right coronary artery that has a downward takeoff it has a 99% stenosis in the proximal segment with NGOC II flow pre-PCI and less than 10% residual stenosis and NGOC-3 flow post PCI ( unable to pass filter wire. There is mild diffuse disease throughout the saphenous vein graft to the RCA RFA/FLORY: Right femoral iliac arteries are normal however access to the branches and unable to close with Angio-Seal. Minx closure device used. Assessment: 1. Unstable angina secondary to high-grade stenosis in the saphenous vein graft to the RCA status post successful stenting with ARIELLE 1 as described above 2. Elevated end-diastolic pressure suggesting diastolic dysfunction 3. Widely patent Y graft saphenous vein graft to 2 branches of the left circumflex distribution with adequate revascularization of this distribution 4. Widely patent stent in the LAD 5. Atretic LUNDBERG PLAN: 1. Cardiac rehab 2. Diuresis once contrast exposure removed 3. Beta kunal EVAN inhibitor statin dual antiplatelet therapy and standard risk factor modification. 4. Return to the patient's telemetry floor Implants: 3.5 x 18 mm Xience drug-eluting stent the saphenous vein graft to the RCA Anesthesia: moderate conscious sedation Surgeon / Physician: Sharon [place] Tool Maker: none Estimated blood loss: none Specimens: none sent Condition: stable Disposition: floor - Medications / Follow-up
--- NOTE | 2017-01-29 13:35 | EKG Report ---
Stationary ECG Study [facility] Test Date: 01/29/2017 1:34:40 PM Pat Name: ROBYN YEE Department: Room: 274 Gender: F Formal Service Waiter: : [id number] Requested by: Ambreen Ardon Order Number: [id number] Reading MD: MELE BELLO Intervals [place] Rate: 69 P: 64 FL: 170 QRS: 69 QRSD: 108 T: 33 QT: 415 QTc: 435 Interpretive Statements SINUS RHYTHM Electronically Signed On 01-31-17 16:43:32 CDT by MELE BELLO [email or web address]
[2017-01-29] MEDS: AZITHROMYCIN INJ 250 MG in SODIUM CHLORIDE 0.9% 250 ML IV SCH (20:22)
--- NOTE | 2017-01-30 04:01 | Cardiology Progress Note ---
Assessment and Plan (1) Atrial fibrillation with rapid ventricular response Status: Resolved Current Visit: Yes (2) Chest pain Status: Resolved Current Visit: Yes (3) right lower lobe pneumonia Status: Acute Current Visit: Yes (4) Coronary artery disease Status: Chronic Current Visit: Yes Qualifiers: Coronary Disease-Associated Artery/Lesion type: bypass graft [place] vs. transplanted heart: [place] heart (5) Hyperlipidemia Status: Chronic Current Visit: Yes (6) Hypertension Status: Chronic Current Visit: Yes (7) Morbid obesity with BMI of 50.0-59.9, adult Status: Chronic Current Visit: Yes Cardiology - PN: Subj Interval history: Cardiology note 71-year-old woman admitted with right lower lobe pneumonia and CHF. Also had atrial fib that converted with IV Cardizem. Status post RCA vein graft stent 3.5 x 18 drug-coated yesterday. No chest pain. No temperature. Right groin has small ecchymotic bruise but no hematoma or bruit. O2 sat 95% on 2 L Blood pressure 130/72 Impression Cardiomegaly and CHF Right lower lobe pneumonia Paroxysmal atrial fibrillation converted to sinus with IV Cardizem Echo showed ejection fraction 55% with aortic valve sclerosis and moderate TR PA pressure 50 Status post four-vessel CABG November 26, 1997 with LUNDBERG graft to LAD, Y graft to OM1 and OM 2, and vein graft to right coronary. Status post RCA vein graft stent yesterday. The Y graft to OM1 and OM 2 is patent. The LUNDBERG graft to the LAD is small and essentially nonfunctional. The [place] LAD has a widely patent stent site with good antegrade flow. Lifetime non-smoker Restless legs Chronic hypertension Obstructive sleep apnea Morbid obesity 164.8 kg Plan No stooping straining or heavy lifting for 1 week to minimize potential groin problems Aspirin 81 mg and Plavix 75 mg daily Atorvastatin 40 mg daily Lisinopril 10 mg twice daily Lasix 40 mg twice daily BMP pending Metoprolol 50 mg daily Amlodipine 10 mg daily Office visit with EKG 1 week Exam (Progress Note) - Constitutional Vitals: Period Temp Pulse Resp BP Sys/Grant Pulse Ox Last 24 Hr 97.8 F-98.5 F 64-81 16-22 129-164/59-91 91-99 Result/EKG - Labs CBC & BMP: 01/28/17 05:46 01/28/17 05:46 Labs: Laboratory Results - last 24 hr 01/29/17 01/29/17 13:28 21:44 Troponin I 0.225 H D 0.259 H Quality Measures - VTE Contraindication to Pharmacological VTE Prophylaxis: High Risk of Bleeding Specialty Discharge - Follow Up or Referrals
[2017-01-30] MEDS: ALBUTEROL/IPRATROPIUM 3 ML NEB RESP TX SCH ×6 (04:08→18:50)
[2017-01-30 06:03] LABS: Basophils # 0.1 10*3/uL (0.0-0.2); Basophils % 0.9 % (0.0-0.8); Eosinophils # 0.4 10*3/uL (0.0-0.87); Eosinophils % 3.8 % (0.00-10.9); Hematocrit 42.1 VOL% (35.7-47.0); Immature Granulocytes % 0.4 %; Immature Granulocytes Absolute 0.04 #; Lymphocytes # 3.3 10*3/uL (1.4-4.0); Lymphocytes % 29.7 % (21.3-54.2); Mean Corpuscular HGB Conc 33.3 GM/DL (32-36); Mean Corpuscular Hemoglobin 31 PG (27-34); Mean Corpuscular Volume 92.1 FL (87-102); Mean Platelet Volume 11.5 FL (9.6-12.0); Monocytes # 1.4 10*3/uL (0.11-0.8); Monocytes % 12.3 % (1.7-12.7); Neutrophils # 5.8 10*3/uL (1.4-7.4); Neutrophils % 52.9 % (38.7-73.9); Platelet Count 297 T/CUMM (130-400); Red Blood Count 4.57 MC/CUMM (3.8-5.5); Red Cell Distribution Width 14.1 % (9.3-17.3)
[2017-01-30 06:35] LABS: Calcium 8.8 MG/DL (8.5-10.1); Magnesium 2.2 MG/DL (1.8-2.4); Osmolality,Calculated 279.3 MOS/KG (273-304); Potassium 4.4 MMOL/L (3.5-5.1)
--- NOTE | 2017-01-30 07:43 | Family Practice Progress Note ---
Family Practice - PN: Subj Interval history: Patient states she is continuing to feel better but still has some shortness of breath. Patient did have a positive blood culture for Staphylococcus epidermidis. It is sensitive to second generation cephalosporin and I have started her on Ancef. I told her this may indeed be a contaminant but with her leukocytosis and abnormal chest x-ray I thought it best to treat her. She understands. Exam (Progress Note) - Constitutional Vitals: Period Temp Pulse Resp BP Sys/Grant Pulse Ox Last 24 Hr 97.8 F-98.5 F 64-81 17-22 129-158/59-91 92-99 Exam: Objective a well-developed obese white female who is awake alert and able to give good history. She is not dyspneic at rest. Cardiovascular: Heart rates regular without murmurs or gallops. Respiratory: Patient has right basilar rales. Abdomen: Abdomen soft and nontender to palpation. Extremities: There is no calf swelling or tenderness. Results - Labs CBC & BMP: 01/30/17 05:17 01/30/17 05:17 Lab Results: I have reviewed the past 24 hour labs Assessment and Plan (1) right lower lobe pneumonia Status: Acute Assessment and plan: 01/30/2017: Ancef has been added. Current Visit: Yes Quality Measures - VTE Contraindication to Pharmacological VTE Prophylaxis: High Risk of Bleeding Specialty Discharge - Follow Up or Referrals
[2017-01-30] MEDS: METOPROLOL SUCCINATE XL 50 MG TABLET PO SCH (09:07)
[2017-01-30] MEDS: FUROSEMIDE 40 MG/4 ML VIAL IV SCH ×2 (09:07→15:58)
[2017-01-30] MEDS: ENOXAPARIN 40 MG/0.4 ML SYRINGE SUBCUT SCH (09:07)
[2017-01-30] MEDS: POTASSIUM CHLORIDE 20 MEQ TABLET PO SCH (09:07)
[2017-01-30] MEDS: amLODIPine 10 MG TABLET PO SCH (09:07)
[2017-01-30] MEDS: BENZONATATE 100 MG CAPSULE PO SCH ×3 (09:08→21:33)
[2017-01-30] MEDS: DOCUSATE SODIUM 100 MG CAPSULE PO SCH ×2 (09:08→21:33)
[2017-01-30] MEDS: PANTOPRAZOLE 40 MG TABLET PO SCH (09:08)
[2017-01-30] MEDS: CLOPIDOGREL 75 MG TABLET PO SCH (09:08)
[2017-01-30] MEDS: ATORVASTATIN 40 MG TABLET PO SCH (09:08)
[2017-01-30] MEDS: ASPIRIN EC 81 MG TABLET PO SCH (09:08)
[2017-01-30] MEDS: LISINOPRIL 10 MG TABLET PO SCH ×2 (09:08→21:33)
--- NOTE | 2017-01-30 09:10 | EKG Report ---
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
[2017-01-30] MEDS: AZITHROMYCIN INJ 250 MG in SODIUM CHLORIDE 0.9% 250 ML IV SCH (23:25)
[2017-01-31] MEDS: ALBUTEROL/IPRATROPIUM 3 ML NEB RESP TX SCH ×6 (00:43→19:44)
[2017-01-31 04:43] LABS: Basophils # 0.1 10*3/uL (0.0-0.2); Basophils % 0.5 % (0.0-0.8); Eosinophils # 0.3 10*3/uL (0.0-0.87); Eosinophils % 2.8 % (0.00-10.9); Hematocrit 39.2 VOL% (35.7-47.0); Hemoglobin 13.1 GM/DL (12.0-16.0); Immature Granulocytes % 0.4 %; Immature Granulocytes Absolute 0.05 #; Lymphocytes # 3.7 10*3/uL (1.4-4.0); Lymphocytes % 32.8 % (21.3-54.2); Mean Corpuscular HGB Conc 33.4 GM/DL (32-36); Mean Corpuscular Hemoglobin 31 PG (27-34); Mean Corpuscular Volume 92.7 FL (87-102); Mean Platelet Volume 11.1 FL (9.6-12.0); Monocytes # 1.5 10*3/uL (0.11-0.8); Neutrophils # 5.7 10*3/uL (1.4-7.4); Neutrophils % 50.5 % (38.7-73.9); Platelet Count 294 T/CUMM (130-400); Red Blood Count 4.23 MC/CUMM (3.8-5.5); Red Cell Distribution Width 14.2 % (9.3-17.3); White Blood Count 11.3 T/CUMM (4-12)
[2017-01-31 05:17] LABS: Calcium 8.7 MG/DL (8.5-10.1); Magnesium 2.2 MG/DL (1.8-2.4)
--- NOTE | 2017-01-31 07:12 | Family Practice Progress Note ---
Family Practice - PN: Subj Interval history: Patient states she had a good night and she certainly breathing better. She states her cough is much reduced. We started her on Ancef yesterday for her positive blood cultures. Exam (Progress Note) - Constitutional Vitals: Period Temp Pulse Resp BP Sys/Grant Pulse Ox Last 24 Hr 96.4 F-99.0 F 64-79 16-20 151-179/71-102 92-99 Exam: Objective a well-developed obese white female who is awake alert and able to give good history. She is not dyspneic at rest. Repeat chest x-ray is pending. Cardiovascular: Heart rates regular without murmurs or gallops. Respiratory: Patient has persistent right basilar rales. Abdomen: Abdomen soft and nontender to palpation. Extremities: There is no calf swelling or tenderness. Results - Labs CBC & BMP: 01/31/17 04:35 01/31/17 04:35 Lab Results: I have reviewed the past 24 hour labs - Diagnostic Findings Procedure: Chest x-ray: report reviewed by me (Chest x-ray is pending.) Assessment and Plan (1) right lower lobe pneumonia Status: Acute Assessment and plan: 01/30/2017: Ancef has been added. 01/31/2017: Patient is clinically improving and her repeat chest x-ray is pending. Her positive blood cultures have been addressed. Current Visit: Yes Quality Measures - VTE Contraindication to Pharmacological VTE Prophylaxis: High Risk of Bleeding Specialty Discharge - Follow Up or Referrals
[2017-01-31] MEDS: ASPIRIN EC 81 MG TABLET PO SCH (09:57)
[2017-01-31] MEDS: ENOXAPARIN 40 MG/0.4 ML SYRINGE SUBCUT SCH (09:57)
[2017-01-31] MEDS: CLOPIDOGREL 75 MG TABLET PO SCH (09:58)
[2017-01-31] MEDS: DOCUSATE SODIUM 100 MG CAPSULE PO SCH ×2 (09:58→21:24)
[2017-01-31] MEDS: POTASSIUM CHLORIDE 20 MEQ TABLET PO SCH (09:58)
[2017-01-31] MEDS: ATORVASTATIN 40 MG TABLET PO SCH (09:58)
[2017-01-31] MEDS: amLODIPine 10 MG TABLET PO SCH (09:58)
[2017-01-31] MEDS: BENZONATATE 100 MG CAPSULE PO SCH ×3 (09:59→21:24)
[2017-01-31] MEDS: METOPROLOL SUCCINATE XL 50 MG TABLET PO SCH (09:59)
[2017-01-31] MEDS: LISINOPRIL 10 MG TABLET PO SCH ×2 (09:59→21:24)
[2017-01-31] MEDS: PANTOPRAZOLE 40 MG TABLET PO SCH (10:00)
--- NOTE | 2017-01-31 10:11 | Cardiology Progress Note ---
Assessment and Plan (1) Atrial fibrillation with rapid ventricular response Status: Resolved Current Visit: Yes (2) Chest pain Status: Resolved Current Visit: Yes (3) right lower lobe pneumonia Status: Acute Current Visit: Yes (4) Coronary artery disease Status: Chronic Current Visit: Yes Qualifiers: Coronary Disease-Associated Artery/Lesion type: bypass graft [place] vs. transplanted heart: [place] heart (5) Hyperlipidemia Status: Chronic Current Visit: Yes (6) Hypertension Status: Chronic Current Visit: Yes (7) Morbid obesity with BMI of 50.0-59.9, adult Status: Chronic Current Visit: Yes Cardiology - PN: Subj Interval history: Cardiology note 71 year old woman admitted with right lower lobe pneumonia and CHF. Also had atrial fib converted with IV Cardizem. Status post RCA vein graft stent 3.5 X18 drug-coated Feels better. No temperature. No chest pain. Blood pressure still running a little high 160/88 Telemetry has been benign. Regular rhythm no murmur. Distant tones. Decreased breath sounds but fairly clear Abdomen obese and nontender Right groin small ecchymotic bruise but no bruit or hematoma Impression Cardiomegaly and CHF Right lower lobe pneumonia Paroxysmal atrial fibrillation converted with IV Cardizem echo shows EF 55% with aortic valve sclerosis and moderate TR PA pressure 50 Status post four-vessel CABG November 26, 1997 with LUNDBERG graft to LAD, Y graft to OM1 and OM 2, vein graft to right coronary Status post RCA vein graft stent 01/29/2017. Y graft to OM1 and OM2 is patent. LUNDBERG graft to LAD is small and essentially nonfunctional. The [place] LAD has a widely patent stent site with good antegrade flow. Lifetime non-smoker Restless legs Chronic hypertension Obstructive sleep apnea Morbid obesity 164 kg This patient does not have a bacteremia. ID saw the patient and felt blood cultures were contaminants. Plan Increase lisinopril 20 mg twice daily Aspirin 81 mg and Plavix 75 mg daily Lasix 40 mg twice daily Amlodipine 10 mg daily Metoprolol 50 mg daily Atorvastatin 40 mg daily Office visit with EKG 1 week Probable home tomorrow Exam (Progress Note) - Constitutional Vitals: Period Temp Pulse Resp BP Sys/Grant Pulse Ox Last 24 Hr 96.4 F-99.0 F 64-76 16-20 151-179/78-102 92-99 Result/EKG - Labs CBC & BMP: 01/31/17 04:35 01/31/17 04:35 Labs: Laboratory Results - last 24 hr 01/31/17 01/31/17 04:35 04:35 WBC 11.3 RBC 4.23 Hgb 13.1 Hct 39.2 MCV 92.7 MCH 31 MCHC 33.4 RDW 14.2 Plt Count 294 MPV 11.1 Neut % (Auto) 50.5 Lymph % (Auto) 32.8 [place] % (Auto) 13.0 H Eos % (Auto) 2.8 Baso % (Auto) 0.5 Neut # (Auto) 5.7 Lymph # (Auto) 3.7 [place] # (Auto) 1.5 H Eos # (Auto) 0.3 Baso # (Auto) 0.1 Immature Gran % 0.4 Nucleated RBC % 0.0 Immature Gran # 0.05 Nucleated RBCs # 0.00 Immature Plt Fraction 0.0 Sodium 143 Potassium 4.0 Chloride 107 Carbon Dioxide 30 Anion Gap 10.0 BUN 8 Creatinine 0.70 GFR Calculation 130 BUN/Creatinine Ratio 11.00 Glucose 106 Calculated Osmolality 282.0 Calcium 8.7 Magnesium 2.2 Quality Measures - VTE Contraindication to Pharmacological VTE Prophylaxis: High Risk of Bleeding Specialty Discharge - Follow Up or Referrals
--- NOTE | 2017-01-31 10:28 | XRay Report ---
XR chest 2V Indication: Pneumonia. Comparison: Chest x-ray 01/27/2017 Technique: PA and lateral chest x-ray was performed. Findings: Mild cardiomegaly is demonstrated. Previous sternotomy is stable. Minimal blunting the left costophrenic angle is present and trace left-sided pleural effusion is suggested. There is some interval partial clearing of the left cardiophrenic angle. Blunting of the right costophrenic angle is now present and interval development of small right-sided pleural effusion is not excluded. Mid and upper lungs are clear. Bones and soft tissues demonstrate no significant abnormalities. Impression: 1. New small right-sided pleural effusion is suggested. 2. Some improvement in aeration of the left cardiophrenic angle suggesting improving aeration of the left lower lobe is present. Trace left-sided pleural effusion appears stable. 01/31/2017 10:23 AM PROCEDURE INTERPRETED AT [facility] DEPARTMENT OF RADIOLOGY Final Report Signed by: Dr. Quang Dhillon
[2017-01-31] MEDS: FUROSEMIDE 40 MG/4 ML VIAL IV SCH ×2 (10:51→16:36)
[2017-01-31] MEDS: AZITHROMYCIN INJ 250 MG in SODIUM CHLORIDE 0.9% 250 ML IV SCH (21:25)
[2017-02-01] MEDS: ALBUTEROL/IPRATROPIUM 3 ML NEB RESP TX SCH ×6 (00:19→19:08)
[2017-02-01 05:09] LABS: Basophils # 0.1 10*3/uL (0.0-0.2); Basophils % 0.7 % (0.0-0.8); Eosinophils # 0.3 10*3/uL (0.0-0.87); Eosinophils % 2.6 % (0.00-10.9); Hematocrit 42.5 VOL% (35.7-47.0); Immature Granulocytes % 0.4 %; Immature Granulocytes Absolute 0.05 #; Lymphocytes # 4.2 10*3/uL (1.4-4.0); Lymphocytes % 36.9 % (21.3-54.2); Mean Corpuscular HGB Conc 32.9 GM/DL (32-36); Mean Corpuscular Hemoglobin 30 PG (27-34); Mean Corpuscular Volume 92.4 FL (87-102); Mean Platelet Volume 11.9 FL (9.6-12.0); Monocytes # 1.2 10*3/uL (0.11-0.8); Monocytes % 10.7 % (1.7-12.7); Neutrophils # 5.5 10*3/uL (1.4-7.4); Neutrophils % 48.7 % (38.7-73.9); Platelet Count 312 T/CUMM (130-400); Red Cell Distribution Width 14.2 % (9.3-17.3); White Blood Count 11.4 T/CUMM (4-12)
[2017-02-01 05:49] LABS: Calcium 9.2 MG/DL (8.5-10.1); Magnesium 2.2 MG/DL (1.8-2.4); Osmolality,Calculated 277.4 MOS/KG (273-304); Potassium 4.3 MMOL/L (3.5-5.1)
[2017-02-01 06:07] LABS: Hypochromasia 1+; Microcytosis Slight; Platelet Estimate Normal
--- NOTE | 2017-02-01 08:27 | Family Practice Progress Note ---
Family Practice - PN: Subj Interval history: Patient states she feels some better but is still very weak. Has had minimal cough. Patient had a run of atrial fibrillation during the night. She was started on Cardizem and is now back in normal sinus rhythm. Appreciate consultants input. I have discussed with Dr. Mcbride and agrees that patient needs cardiac catheterization. He plans to do that after patient improves. Her a.m. labs are stable except her WBC still elevated at 18,300 with a potassium of 3.4. Her enzymes have elevated since admission. Blood cultures are negative. Her lung barajas are clear to auscultation this a.m.. We will continue present evaluation and treatment 01/27/17 patient states that she feels some better but has been coughing frequently. States her cough is nonproductive in nature. Denies any dyspnea. Denies any chest pain. Staff reports that she has been in normal sinus rhythm. She was scheduled to have a chest x-ray this a.m. which is pending at the time of this dictation. I will review when available. Trying to clear pneumonia so that she can have a cardiac catheterization later this week. Her a.m. labs revealed a WBC of 17,700 which is slightly improved from yesterday. Other labs are stable. Her lung barajas are clear to auscultation. Will continue present treatment plan and review x-rays. 02/01/17 patient states she feels better still having moderate cough but no significant dyspnea. Vitals in a.m. labs are stable. Has been ambulating in the servin with assistance. May need to swing bed on discharge will have social staff worker evaluate . Her lung barajas are clear to auscultation this a.m. normal sinus rhythm. Will increase activity and begin discharge planning Exam (Progress Note) - Constitutional Vitals: Period Temp Pulse Resp BP Sys/Grant Pulse Ox Last 24 Hr 96.9 F-99.2 F 63-78 16-20 139-163/58-80 90-99 Results - Labs CBC & BMP: 02/01/17 03:57 02/01/17 03:57 Assessment and Plan (1) right lower lobe pneumonia Status: Acute Assessment and plan: We will admit and start on empiric antibiotic therapy Current Visit: Yes (2) status post coronary artery bypass graft Status: Chronic Assessment and plan: We'll consult cardiology since patient has not been seen in years for follow-up Current Visit: Yes (3) Coronary artery disease Status: Chronic Assessment and plan: We'll ask cardiology to a bowel patient who has not been followed for years for coronary artery disease Current Visit: Yes Qualifiers: Coronary Disease-Associated Artery/Lesion type: bypass graft [place] vs. transplanted heart: [place] heart (4) Hypertension Status: Chronic Assessment and plan: Stable on present medication Current Visit: Yes (5) Unspecified sleep apnea Status: Chronic Assessment and plan: We will consult Dr. Balderas to evaluate Current Visit: Yes (6) Morbid obesity with BMI of 50.0-59.9, adult Status: Chronic Assessment and plan: Has been very difficult to have patient lose any meaningful weight Current Visit: Yes (7) Hyperlipidemia Status: Chronic Assessment and plan: Stable on present medication Current Visit: Yes Quality Measures - VTE Contraindication to Pharmacological VTE Prophylaxis: High Risk of Bleeding Specialty Discharge - Follow Up or Referrals
[2017-02-01] MEDS: CLOPIDOGREL 75 MG TABLET PO SCH (08:34)
[2017-02-01] MEDS: ENOXAPARIN 40 MG/0.4 ML SYRINGE SUBCUT SCH (08:34)
[2017-02-01] MEDS: POTASSIUM CHLORIDE 20 MEQ TABLET PO SCH (08:34)
[2017-02-01] MEDS: ATORVASTATIN 40 MG TABLET PO SCH (08:34)
[2017-02-01] MEDS: amLODIPine 10 MG TABLET PO SCH (08:34)
[2017-02-01] MEDS: BENZONATATE 100 MG CAPSULE PO SCH ×3 (08:35→22:23)
[2017-02-01] MEDS: PANTOPRAZOLE 40 MG TABLET PO SCH (08:35)
[2017-02-01] MEDS: ASPIRIN EC 81 MG TABLET PO SCH (08:35)
[2017-02-01] MEDS: DOCUSATE SODIUM 100 MG CAPSULE PO SCH ×2 (08:35→22:23)
[2017-02-01] MEDS: LISINOPRIL 10 MG TABLET PO SCH ×2 (08:36→22:23)
[2017-02-01] MEDS: FUROSEMIDE 40 MG/4 ML VIAL IV SCH (08:36)
[2017-02-01] MEDS: METOPROLOL SUCCINATE XL 50 MG TABLET PO SCH (08:36)
--- NOTE | 2017-02-01 15:24 | Cardiology Consult Note ---
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 Mcbride PCP: Dr. David SUMMARY: Ms. Kulkarni is a 71 year old female with history of premature coronary artery disease, hypertension, hyperlipidemia, morbid obesity. She is status post coronary artery bypass grafting on 11/26/1997 (at age 51) by Dr. Adams with LUNDBERG to the LAD, saphenous vein graft to the diagonal and circumflex, and single graft to the RCA. She is a lifetime non-smoker. She tells me that she has not followed up with cardiology in over 10 years as her insurance changed and would no longer cover [facility] physicians and required her to go to [place] which she did not wish to do. She last had a normal perfusion study on 2004. Ms. Kulkarni presented to the emergency room with complaints of cough, dyspnea, and pain in the left upper chest. Chest x-ray was suggestive for CHF and pneumonia. Patient was treated with antibiotics and IV Lasix. Her hospitalization was complicated by atrial relation with rapid ventricular response. Has now converted to normal sinus rhythm with IV Cardizem. Echocardiogram revealed ejection fraction of 55%, aortic valve sclerosis, moderate tricuspid valve regurgitation. Blood cultures are positive for gram- positive cocci, MRSA negative. Infectious disease was consulted. Initial cardiac biomarkers were negative 3. Patient's symptoms were concerning for unstable angina. Therefore, patient was scheduled for heart catheterization with the following impressions noted: Assessment: 1. Unstable angina secondary to high-grade stenosis in the saphenous vein graft to the RCA status post successful stenting with ARIELLE 1 as described above 2. Elevated end-diastolic pressure suggesting diastolic dysfunction 3. Widely patent Y graft saphenous vein graft to 2 branches of the left circumflex distribution with adequate revascularization of this distribution 4. Widely patent stent in the LAD 5. Atretic LUNDBERG PLAN: 1. Cardiac rehab 2. Diuresis once contrast exposure removed 3. Beta kunal EVAN inhibitor statin dual antiplatelet therapy and standard risk factor modification. 4. Return to the patient's telemetry floor ASSESSMENT/PLAN: 1. CHEST PAIN - Although her pain does not sound completely typical of angina, she has not had cardiac follow up in many years. She has been ruled out for [place], but she would likely benefit from further evaluation with stress testing. Will further discuss with Dr. Mcbride for his recommendations on inpatient versus outpatient stress testing. 2. PNEUMONIA - Family medicine is following. She has been started on IVF for hydration and IV antibiotics. 3. CORONARY ARTERY DISEASE - She is status post coronary artery bypass grafting on 11/26/[address] Adams with LUNDBERG to the LAD, Y graft using saphenous vein to the diagonal and circumflex, and single graft to the RCA. Continue ASA, Plavix , statin, beta kunal. Will check echocardiogram to assess for wall motion or valvular abnormalities. 4. HYPERTENSION - Suboptimally controlled since admission. Will increase her dose of Toprol XL and continue to monitor and adjust medications accordingly. 5. HYPERLIPIDEMIA - Continue lipid lowering agent. Lipid panel in AM. 6. MORBID OBESITY - Chronic. CC: Patel David DO - Home Medications and Allergies Home Medications: Home Medications Medication Instructions Recorded Confirmed Type Amlodipine Besylate [Amlodipine 10 mg PO DAILY 01/25/17 01/25/17 History Besylate] Aspirin [Ecotrin] 81 mg PO DAILY 01/25/17 01/25/17 History Atorvastatin [Lipitor] 40 mg PO DAILY 01/25/17 01/25/17 History Clopidogrel Bisulfate [Clopidogrel] 75 mg PO DAILY 01/25/17 01/25/17 History Furosemide [Furosemide] 40 mg PO DAILY 01/25/17 01/25/17 History Metoprolol Succinate 25 mg PO DAILY 01/25/17 01/25/17 History raNITIdine HCl [Ranitidine HCl] 300 mg PO DAILY 01/25/17 01/25/17 History Allergies/Adverse Reactions: Allergies Allergy/AdvReac Type Severity Reaction Status Date / Time allopurinol Allergy HIVES Verified 01/24/17 18:34 pregabalin [From Lyrica] Allergy HIVES Verified 01/24/17 18:34 Medical,Surgical,& Family Hx - Medical History Cardio: History of: CAD, Hypertension, Cardiovascular Problems Neurology: No history of: Seizures HEENT: History of: Eye Problem Endocrine: History of: Dyslipidemia Musculoskeletal: History of: Musculoskeletal Problems - Surgical History Cardiac Surgeries: Sugical HX of: Cardiac Catheterization, Cardiac Surgery Thoracic Surgeries: Patient denies;: Organ Transplant, Lobectomy Neurologic Surgeries: Patient denies: Neurologic Surgery Abdominal Surgeries: Patient denies: Abdominal Surgery Reproductive Surgeries: Surgical HX of;: Hysterectomy Patient denies;: Genitourinary Surgery Orthopedic Surgeries: Surgical HX of;: Total Knee Replacement - Social History Smoking Status: Never smoker Frequency of Alcohol Use: None Type of Drug Use: None Physical Examination Vital Signs Temp Pulse Resp BP Pulse Ox 101.0 F H 58 L 16 185/86 94 L 01/24/17 18:24 01/24/17 18:24 01/24/17 18:24 01/24/17 18:24 01/24/17 18:24 Result/EKG - Labs CBC & BMP: 02/01/17 03:57 02/01/17 03:57 Labs: Laboratory Results - last 24 hr 02/01/17 02/01/17 03:57 03:57 WBC 11.4 RBC 4.60 Hgb 14.0 Hct 42.5 MCV 92.4 MCH 30 MCHC 32.9 RDW 14.2 Plt Count 312 MPV 11.9 Neut % (Auto) 48.7 Lymph % (Auto) 36.9 [place] % (Auto) 10.7 Eos % (Auto) 2.6 Baso % (Auto) 0.7 Neut # (Auto) 5.5 Lymph # (Auto) 4.2 H [place] # (Auto) 1.2 H Eos # (Auto) 0.3 Baso # (Auto) 0.1 Immature Gran % 0.4 Nucleated RBC % 0.0 Immature Gran # 0.05 Nucleated RBCs # 0.00 Platelet Estimate Normal Immature Plt Fraction 0.0 Hypochromasia 1+ Microcytosis Slight Morphology Comment Sodium 140 Potassium 4.3 Chloride 106 Carbon Dioxide 25 Anion Gap 13.3 BUN 10 Creatinine 0.80 GFR Calculation 110 BUN/Creatinine Ratio 12.00 Glucose 98 Calculated Osmolality 277.4 Calcium 9.2 Magnesium 2.2 Quality Measures - VTE Contraindication to Pharmacological VTE Prophylaxis: High Risk of Bleeding Specialty Discharge - Follow Up or Referrals
--- NOTE | 2017-02-01 15:43 | Cardiology Progress Note ---
<Alice Carter - Last Filed: 02/01/17 16:01> Assessment and Plan (1) Pneumonia Status: Acute Assessment and plan: See plan of care listed below. Current Visit: Yes (2) Coronary artery disease Status: Chronic Assessment and plan: See plan of care listed below. Current Visit: Yes Qualifiers: Coronary Disease-Associated Artery/Lesion type: bypass graft [place] vs. transplanted heart: [place] heart (3) Hyperlipidemia Status: Chronic Assessment and plan: See plan of care listed below. Current Visit: Yes (4) Hypertension Status: Chronic Assessment and plan: See plan of care listed below. Current Visit: Yes (5) Morbid obesity with BMI of 50.0-59.9, adult Status: Chronic Assessment and plan: See plan of care listed below. Current Visit: Yes (6) Unspecified sleep apnea Status: Chronic Assessment and plan: See plan of care listed below. Current Visit: Yes (7) status post coronary artery bypass graft Status: Chronic Assessment and plan: See plan of care listed below. Current Visit: Yes (8) Atrial fibrillation with rapid ventricular response Status: Resolved Assessment and plan: See plan of care listed below. Current Visit: Yes (9) Chest pain Status: Resolved Assessment and plan: See plan of care listed below. Current Visit: Yes (10) Atrial fibrillation, new onset Status: Acute Assessment and plan: See plan of care listed below Current Visit: Yes Cardiology - PN: Subj Interval history: [employer]INE [employer]ENDER: seen in the distant past (>10 years ago) by Dr. Mcbride PCP: Dr. David SUMMARY: Ms. Kulkarni is a 71 year old female with history of premature coronary artery disease, hypertension, hyperlipidemia, morbid obesity. She is status post coronary artery bypass grafting on 11/26/1997 (at age 51) by Dr. Adams with LUNDBERG to the LAD, saphenous vein graft to the diagonal and circumflex, and single graft to the RCA. She is a lifetime non-smoker. She tells me that she has not followed up with cardiology in over 10 years as her insurance changed and would no longer cover [facility] physicians and required her to go to [place] which she did not wish to do. She last had a normal perfusion study on 2004. Ms. Kulkarni presented to the emergency room with complaints of cough, dyspnea, and pain in the left upper chest. Chest x-ray was suggestive for CHF and pneumonia. Patient was treated with antibiotics and IV Lasix. Her hospitalization was complicated by atrial relation with rapid ventricular response. Has now converted to normal sinus rhythm with IV Cardizem. Echocardiogram revealed ejection fraction of 55%, aortic valve sclerosis, moderate tricuspid valve regurgitation. Blood cultures are positive for gram- positive cocci, MRSA negative. Infectious disease was consulted and felt that blood cultures were contaminants. Initial cardiac biomarkers were negative 3. Patient's symptoms were concerning for unstable angina. Therefore, patient was scheduled for heart catheterization with the following impressions noted: Assessment: 1. Unstable angina secondary to high-grade stenosis in the saphenous vein graft to the RCA status post successful stenting with ARIELLE 1 as described above 2. Elevated end-diastolic pressure suggesting diastolic dysfunction 3. Widely patent Y graft saphenous vein graft to 2 branches of the left circumflex distribution with adequate revascularization of this distribution 4. Widely patent stent in the LAD 5. Atretic LUNDBERG PLAN: 1. Cardiac rehab 2. Diuresis once contrast exposure removed 3. Beta kunal EVAN inhibitor statin dual antiplatelet therapy and standard risk factor modification. 4. Return to the patient's telemetry floor FEBRUARY 01, 2017 Patient was seen and examined on the telemetry unit. She is doing well post cardiac catheterization and without complaints. She denies chest pain, heaviness and tightness. Reports that her breathing has improved dramatically. However she continues to have a mild cough. Dr. David has started discharge planning and attempting to get patient placed in swing bed. Right groin is soft without bleeding, hematoma and bruit. Vital signs are stable. Labs are unremarkable. Patient is stable for discharge from a cardiac standpoint. She will be given a follow-up appoint with Dr. Mcbride in 1 week with EKG and CBC. I will further discuss with Dr. Yoon in aware additional recommendations. ASSESSMENT/PLAN: 1. CHEST PAIN WITH KNOWN CAD - Patient is now status post cardiac catheterization with PCI to SVG-RCA. Patient is doing well postoperatively. Continue dual antiplatelet therapy, statin, beta blockade and EVAN inhibitor. 2. PNEUMONIA - Improving. Continue antibiotics. Management per attending. 3. CORONARY ARTERY DISEASE - She is status post coronary artery bypass grafting on 11/26/[address] Adams with LUNDBERG to the LAD, Y graft using saphenous vein to the diagonal and circumflex, and single graft to the RCA. Continue ASA, Plavix , statin, beta kunal. 4. HYPERTENSION - Continue current plan of care. Will monitor blood pressure and adjust medications accordingly. 5. HYPERLIPIDEMIA - Continue lipid lowering agent. LDL 57. 6. MORBID OBESITY - Chronic. Weight loss encouraged. 7. SLEEP APNEA, UNSPECIFIED - Dr. Balderas has been consulted. Planning for outpatient evaluation. 8. ATRIAL FIBRILLATION WITH RVR - Converted with IV Cardizem. Now transitioned to p.o. Chads vasc score of 5. I will initiate Eliquis 5 mg twice daily in order to provide stroke prevention. Daily CBC. 9. CONGESTIVE HEART FAILURE - Now compensated. Will transition patient to p.o. Lasix. Exam (Progress Note) - Constitutional Vitals: Period Temp Pulse Resp BP Sys/Grant Pulse Ox Last 24 Hr 96.9 F-99.2 F 63-78 12-20 126-163/58-80 90-99 Exam: General: Appears well with no apparent distress. Pleasant and cooperative. Appears comfortable. Obese. HEENT: PERRL, normocephalic, atraumatic. Mucous membranes moist. No jaundice noted. Conjunctiva moist and clear, sclerae anicteric Neck: no thyromegaly or lymphadenopathy noted. No carotid bruit appreciated Cardiac: Regular rate and rhythm. Unable to assess for JVD due to habitus. Absent: gallop, rubs, murmur Lungs: Clear to auscultation without accessory muscle use to assist the respiratory pattern. Oxygen via nasal cannula. Abdomen: Soft, bowel sounds normoactive. Nontender and nondistended. Extremities: No clubbing, cyanosis noted. 2+ bilateral lower extremity edema. Upper extremity pulses 2+. Lower extremity pulses 2+. Capillary refill less than 3 seconds. Right groin soft without bleeding, hematoma and bruit. Skin: No unusual lesions or rashes. No skin breakdown appreciated. Neuro: Awake, alert and oriented 3. Moves all extremities well without hemiparesis or paralysis. No essential tremor is appreciated. Result/EKG - Labs CBC & BMP: 02/01/17 03:57 02/01/17 03:57 Lab Results: I have reviewed the past 24 hour labs Labs: Laboratory Results - last 24 hr 02/01/17 02/01/17 03:57 03:57 WBC 11.4 RBC 4.60 Hgb 14.0 Hct 42.5 MCV 92.4 MCH 30 MCHC 32.9 RDW 14.2 Plt Count 312 MPV 11.9 Neut % (Auto) 48.7 Lymph % (Auto) 36.9 Webb % (Auto) 10.7 Eos % (Auto) 2.6 Baso % (Auto) 0.7 Neut # (Auto) 5.5 Lymph # (Auto) 4.2 H Webb # (Auto) 1.2 H Eos # (Auto) 0.3 Baso # (Auto) 0.1 Immature Gran % 0.4 Nucleated RBC % 0.0 Immature Gran # 0.05 Nucleated RBCs # 0.00 Platelet Estimate Normal Immature Plt Fraction 0.0 Hypochromasia 1+ Microcytosis Slight Morphology Comment Sodium 140 Potassium 4.3 Chloride 106 Carbon Dioxide 25 Anion Gap 13.3 BUN 10 Creatinine 0.80 GFR Calculation 110 BUN/Creatinine Ratio 12.00 Glucose 98 Calculated Osmolality 277.4 Calcium 9.2 Magnesium 2.2 Quality Measures - VTE Contraindication to Pharmacological VTE Prophylaxis: High Risk of Bleeding Specialty Discharge - Follow Up or Referrals Follow up with: Vipul Mcbride MD [Physician] - 1 Week (EKG and CBC) <Cinthia Yoon - Last Filed: 02/01/17 17:57> Cardiology - PN: Subj Interval history: I have personally interviewed and examined the patient, reviewed the chart and discussed medical decision-making with practitioner Raul. I have read this note and agree with the documentation herein. No further recommendations at this time. She should monitor her stool for a change in color or blood. Exam (Progress Note) - Constitutional Vitals: Period Temp Pulse Resp BP Sys/Grant Pulse Ox Last 24 Hr 96.9 F-98.6 F 61-78 12-20 126-148/58-69 90-99 Result/EKG - Labs CBC & BMP: 02/01/17 03:57 02/01/17 03:57 Labs: Laboratory Results - last 24 hr 02/01/17 02/01/17 03:57 03:57 WBC 11.4 RBC 4.60 Hgb 14.0 Hct 42.5 MCV 92.4 MCH 30 MCHC 32.9 RDW 14.2 Plt Count 312 MPV 11.9 Neut % (Auto) 48.7 Lymph % (Auto) 36.9 Webb % (Auto) 10.7 Eos % (Auto) 2.6 Baso % (Auto) 0.7 Neut # (Auto) 5.5 Lymph # (Auto) 4.2 H Webb # (Auto) 1.2 H Eos # (Auto) 0.3 Baso # (Auto) 0.1 Immature Gran % 0.4 Nucleated RBC % 0.0 Immature Gran # 0.05 Nucleated RBCs # 0.00 Platelet Estimate Normal Immature Plt Fraction 0.0 Hypochromasia 1+ Microcytosis Slight Morphology Comment Sodium 140 Potassium 4.3 Chloride 106 Carbon Dioxide 25 Anion Gap 13.3 BUN 10 Creatinine 0.80 GFR Calculation 110 BUN/Creatinine Ratio 12.00 Glucose 98 Calculated Osmolality 277.4 Calcium 9.2 Magnesium 2.2
[2017-02-01] MEDS: DILTIAZEM CD 120 MG CAPSULE PO SCH (22:23)
[2017-02-01] MEDS: APIXABAN 5 MG TABLET PO SCH (22:23)
[2017-02-01] MEDS: AZITHROMYCIN INJ 250 MG in SODIUM CHLORIDE 0.9% 250 ML IV SCH (22:24)
[2017-02-02] MEDS: ALBUTEROL/IPRATROPIUM 3 ML NEB RESP TX SCH ×6 (00:13→20:38)
[2017-02-02 05:16] LABS: Basophils # 0.1 10*3/uL (0.0-0.2); Basophils % 0.7 % (0.0-0.8); Eosinophils # 0.3 10*3/uL (0.0-0.87); Eosinophils % 2.6 % (0.00-10.9); Hematocrit 40.7 VOL% (35.7-47.0); Hemoglobin 13.6 GM/DL (12.0-16.0); Immature Granulocytes % 0.5 %; Immature Granulocytes Absolute 0.06 #; Lymphocytes # 3.9 10*3/uL (1.4-4.0); Lymphocytes % 32.1 % (21.3-54.2); Mean Corpuscular HGB Conc 33.4 GM/DL (32-36); Mean Corpuscular Hemoglobin 31 PG (27-34); Mean Corpuscular Volume 93.1 FL (87-102); Mean Platelet Volume 11.5 FL (9.6-12.0); Monocytes # 1.6 10*3/uL (0.11-0.8); Monocytes % 12.8 % (1.7-12.7); Neutrophils # 6.2 10*3/uL (1.4-7.4); Neutrophils % 51.3 % (38.7-73.9); Platelet Count 341 T/CUMM (130-400); Red Blood Count 4.37 MC/CUMM (3.8-5.5); Red Cell Distribution Width 14.1 % (9.3-17.3); White Blood Count 12.2 T/CUMM (4-12)
[2017-02-02 05:47] LABS: Albumin 2.6 G/DL (3.4-5.0); Bilirubin,Total 0.8 MG/DL (0.2-1.0); Calcium 8.3 MG/DL (8.5-10.1); Magnesium 2.2 MG/DL (1.8-2.4); Osmolality,Calculated 281.1 MOS/KG (273-304); Potassium 4.1 MMOL/L (3.5-5.1); Total Protein 6.2 G/DL (6.4-8.3)
--- NOTE | 2017-02-02 08:15 | Family Practice Progress Note ---
Family Practice - PN: Subj Interval history: Patient states she feels some better but is still very weak. Has had minimal cough. Patient had a run of atrial fibrillation during the night. She was started on Cardizem and is now back in normal sinus rhythm. Appreciate consultants input. I have discussed with Dr. Mcbride and agrees that patient needs cardiac catheterization. He plans to do that after patient improves. Her a.m. labs are stable except her WBC still elevated at 18,300 with a potassium of 3.4. Her enzymes have elevated since admission. Blood cultures are negative. Her lung barajas are clear to auscultation this a.m.. We will continue present evaluation and treatment 01/27/17 patient states that she feels some better but has been coughing frequently. States her cough is nonproductive in nature. Denies any dyspnea. Denies any chest pain. Staff reports that she has been in normal sinus rhythm. She was scheduled to have a chest x-ray this a.m. which is pending at the time of this dictation. I will review when available. Trying to clear pneumonia so that she can have a cardiac catheterization later this week. Her a.m. labs revealed a WBC of 17,700 which is slightly improved from yesterday. Other labs are stable. Her lung barajas are clear to auscultation. Will continue present treatment plan and review x-rays. 02/01/17 patient states she feels better still having moderate cough but no significant dyspnea. Vitals in a.m. labs are stable. Has been ambulating in the servin with assistance. May need to swing bed on discharge will have social services technician evaluate . Her lung barajas are clear to auscultation this a.m. normal sinus rhythm. Will increase activity and begin discharge planning 02/02/17 -patient states that she feels she continues to improve. Has slight cough but this is also improved. She has not been getting up or ambulating except go to the bathroom. Again advised patient that she would benefit from swing bed but patient and family do not want this. She is still too weak for discharge and I have advised patient that she must get out of bed ambulate and sit in chair most of the day. Will consult physical therapy to try to increase her activity level. She is near ready for discharge if we can get her ambulating. A.m. lab studies are stable. She is in normal sinus rhythm was clear lung feels this a.m. chest x-ray is pending from this a.m.. If patient ambulates today we will plan to discharge in a.m. if stable Exam (Progress Note) - Constitutional Vitals: Period Temp Pulse Resp BP Sys/Grant Pulse Ox Last 24 Hr 97.7 F-98.7 F 60-75 12-20 126-208/56-101 92-97 Results - Labs CBC & BMP: 02/02/17 04:04 02/02/17 04:04 Assessment and Plan (1) right lower lobe pneumonia Status: Acute Assessment and plan: We will admit and start on empiric antibiotic therapy Current Visit: Yes (2) status post coronary artery bypass graft Status: Chronic Assessment and plan: We'll consult cardiology since patient has not been seen in years for follow-up Current Visit: Yes (3) Coronary artery disease Status: Chronic Assessment and plan: We'll ask cardiology to a bowel patient who has not been followed for years for coronary artery disease Current Visit: Yes Qualifiers: Coronary Disease-Associated Artery/Lesion type: bypass graft [place] vs. transplanted heart: [place] heart (4) Hypertension Status: Chronic Assessment and plan: Stable on present medication Current Visit: Yes (5) Unspecified sleep apnea Status: Chronic Assessment and plan: We will consult Dr. Balderas to evaluate Current Visit: Yes (6) Morbid obesity with BMI of 50.0-59.9, adult Status: Chronic Assessment and plan: Has been very difficult to have patient lose any meaningful weight Current Visit: Yes (7) Hyperlipidemia Status: Chronic Assessment and plan: Stable on present medication Current Visit: Yes Quality Measures - VTE Contraindication to Pharmacological VTE Prophylaxis: High Risk of Bleeding Specialty Discharge - Follow Up or Referrals Follow up with: Vipul Mcbride MD [Physician] - 1 Week (EKG and CBC)
[2017-02-02] MEDS: CLOPIDOGREL 75 MG TABLET PO SCH (08:20)
[2017-02-02] MEDS: POTASSIUM CHLORIDE 20 MEQ TABLET PO SCH (08:20)
[2017-02-02] MEDS: APIXABAN 5 MG TABLET PO SCH ×2 (08:20→21:54)
[2017-02-02] MEDS: BENZONATATE 100 MG CAPSULE PO SCH ×3 (08:21→21:55)
[2017-02-02] MEDS: DILTIAZEM CD 120 MG CAPSULE PO SCH ×2 (08:21→21:55)
[2017-02-02] MEDS: ASPIRIN EC 81 MG TABLET PO SCH (08:21)
[2017-02-02] MEDS: FUROSEMIDE 40 MG TABLET PO SCH (08:21)
[2017-02-02] MEDS: LISINOPRIL 10 MG TABLET PO SCH (08:22)
[2017-02-02] MEDS: PANTOPRAZOLE 40 MG TABLET PO SCH (08:22)
[2017-02-02] MEDS: ATORVASTATIN 40 MG TABLET PO SCH (08:22)
[2017-02-02] MEDS: METOPROLOL SUCCINATE XL 50 MG TABLET PO SCH (08:22)
[2017-02-02] MEDS: DOCUSATE SODIUM 100 MG CAPSULE PO SCH ×2 (08:22→21:55)
--- NOTE | 2017-02-02 08:33 | Cardiology Progress Note ---
<Alice Carter - Last Filed: 02/02/17 08:25> Assessment and Plan (1) Pneumonia Status: Acute Assessment and plan: See plan of care listed below. Current Visit: Yes (2) Coronary artery disease Status: Chronic Assessment and plan: See plan of care listed below. Current Visit: Yes Qualifiers: Coronary Disease-Associated Artery/Lesion type: bypass graft [place] vs. transplanted heart: [place] heart (3) Hyperlipidemia Status: Chronic Assessment and plan: See plan of care listed below. Current Visit: Yes (4) Hypertension Status: Chronic Assessment and plan: See plan of care listed below. Current Visit: Yes (5) Morbid obesity with BMI of 50.0-59.9, adult Status: Chronic Assessment and plan: See plan of care listed below. Current Visit: Yes (6) Unspecified sleep apnea Status: Chronic Assessment and plan: See plan of care listed below. Current Visit: Yes (7) status post coronary artery bypass graft Status: Chronic Assessment and plan: See plan of care listed below. Current Visit: Yes (8) Atrial fibrillation with rapid ventricular response Status: Resolved Assessment and plan: See plan of care listed below. Current Visit: Yes (9) Chest pain Status: Resolved Assessment and plan: See plan of care listed below. Current Visit: Yes (10) Atrial fibrillation, new onset Status: Acute Assessment and plan: See plan of care listed below Current Visit: Yes Cardiology - PN: Subj Interval history: CASING MAN: seen in the distant past (>10 years ago) by Dr. Mcbride PCP: Dr. David SUMMARY: Ms. Kulkarni is a 71 year old female with history of premature coronary artery disease, hypertension, hyperlipidemia, morbid obesity. She is status post coronary artery bypass grafting on 11/26/1997 (at age 51) by Dr. Adams with LUNDBERG to the LAD, saphenous vein graft to the diagonal and circumflex, and single graft to the RCA. She is a lifetime non-smoker. She tells me that she has not followed up with cardiology in over 10 years as her insurance changed and would no longer cover [facility] physicians and required her to go to [place] which she did not wish to do. She last had a normal perfusion study on 2004. Ms. Kulkarni presented to the emergency room with complaints of cough, dyspnea, and pain in the left upper chest. Chest x-ray was suggestive for CHF and pneumonia. Patient was treated with antibiotics and IV Lasix. Her hospitalization was complicated by atrial relation with rapid ventricular response. Has now converted to normal sinus rhythm with IV Cardizem. Echocardiogram revealed ejection fraction of 55%, aortic valve sclerosis, moderate tricuspid valve regurgitation. Blood cultures are positive for gram- positive cocci, MRSA negative. Infectious disease was consulted and felt that blood cultures were contaminants. Initial cardiac biomarkers were negative 3. Patient's symptoms were concerning for unstable angina. Therefore, patient was scheduled for heart catheterization with the following impressions noted: Assessment: 1. Unstable angina secondary to high-grade stenosis in the saphenous vein graft to the RCA status post successful stenting with ARIELLE 1 as described above 2. Elevated end-diastolic pressure suggesting diastolic dysfunction 3. Widely patent Y graft saphenous vein graft to 2 branches of the left circumflex distribution with adequate revascularization of this distribution 4. Widely patent stent in the LAD 5. Atretic LUNDBERG PLAN: 1. Cardiac rehab 2. Diuresis once contrast exposure removed 3. Beta kunal EVAN inhibitor statin dual antiplatelet therapy and standard risk factor modification. 4. Return to the patient's telemetry floor FEBRUARY 02, 2017 Patient was seen and examined on the telemetry unit. She is doing well post cardiac catheterization and without complaints. She denies chest pain, heaviness and tightness. Reports that her breathing continues to improve and that she will be discharged in the morning by her attending. Afebrile. White blood cell count 12.2. Heart: Remains stable without bleeding, hematoma and bruit. Distal pulses 2+. Blood pressure suboptimally controlled. I have adjusted her medications accordingly. Labs been reviewed. H&H stable after initiation of Eliquis yesterday. Patient is stable for discharge home from a cardiac standpoint. She has been given a follow-up appointment with Dr. Mcbride in 1 week with EKG and CBC. I will further discuss with Dr. Yoon and await her additional recommendations. ASSESSMENT/PLAN: 1. CHEST PAIN WITH KNOWN CAD - Patient is now status post cardiac catheterization with PCI to SVG-RCA. Patient is doing well postoperatively. Continue dual antiplatelet therapy, statin, beta blockade and EVAN inhibitor. 2. PNEUMONIA - Improving. Continue antibiotics. Management per attending. Per patient report, she is to be discharged tomorrow. 3. CORONARY ARTERY DISEASE - She is status post coronary artery bypass grafting on 11/26/[address] Adams with LUNDBERG to the LAD, Y graft using saphenous vein to the diagonal and circumflex, and single graft to the RCA. Continue ASA, Plavix , statin, beta kunal. Preserved ejection fraction. 4. HYPERTENSION - Blood pressure suboptimally controlled. EVAN inhibitor dose has been increased. Will continue to monitor BP and adjust accordingly. 5. HYPERLIPIDEMIA - Continue lipid lowering agent. LDL 57. 6. MORBID OBESITY - Chronic. Weight loss encouraged. 7. SLEEP APNEA, UNSPECIFIED - Dr. Balderas has been consulted. Planning for outpatient evaluation. 8. ATRIAL FIBRILLATION WITH RVR - Converted with IV Cardizem. Now transitioned to p.o. Chads vasc score of 5. Eliquis initiated yesterday for stroke prevention. H&H stable today. She will follow up with Dr. Mcbride in 1 week with CBC. 9. CONGESTIVE HEART FAILURE - Now compensated. Preserved EF. Patient has done well after transition to p.o. Lasix. Lost a total of 10 pounds since admission. Exam (Progress Note) - Constitutional Vitals: Period Temp Pulse Resp BP Sys/Grant Pulse Ox Last 24 Hr 97.7 F-98.7 F 60-67 12-20 126-208/56-101 92-96 Exam: General: Appears well with no apparent distress. Pleasant and cooperative. Appears comfortable. Obese. HEENT: PERRL, normocephalic, atraumatic. Mucous membranes moist. No jaundice noted. Conjunctiva moist and clear, sclerae anicteric Neck: no thyromegaly or lymphadenopathy noted. No carotid bruit appreciated Cardiac: Regular rate and rhythm. Unable to assess for JVD due to habitus. Absent: gallop, rubs, murmur Lungs: Clear to auscultation without accessory muscle use to assist the respiratory pattern. Oxygen intermittently Abdomen: Soft, bowel sounds normoactive. Nontender and nondistended. Extremities: No clubbing, cyanosis noted. 2+ bilateral lower extremity edema. Upper extremity pulses 2+. Lower extremity pulses 2+. Capillary refill less than 3 seconds. Right groin soft without bleeding, hematoma and bruit. Skin: No unusual lesions or rashes. No skin breakdown appreciated. Neuro: Awake, alert and oriented 3. Moves all extremities well without hemiparesis or paralysis. No essential tremor is appreciated. Result/EKG - Labs CBC & BMP: 02/02/17 04:04 02/02/17 04:04 Lab Results: I have reviewed the past 24 hour labs Labs: Laboratory Results - last 24 hr 02/02/17 02/02/17 04:04 04:04 WBC 12.2 H RBC 4.37 Hgb 13.6 Hct 40.7 MCV 93.1 MCH 31 MCHC 33.4 RDW 14.1 Plt Count 341 MPV 11.5 Neut % (Auto) 51.3 Lymph % (Auto) 32.1 Jones % (Auto) 12.8 H Eos % (Auto) 2.6 Baso % (Auto) 0.7 Neut # (Auto) 6.2 Lymph # (Auto) 3.9 Jones # (Auto) 1.6 H Eos # (Auto) 0.3 Baso # (Auto) 0.1 Immature Gran % 0.5 Nucleated RBC % 0.0 Immature Gran # 0.06 Nucleated RBCs # 0.00 Immature Plt Fraction 0.0 Sodium 142 Potassium 4.1 Chloride 106 Carbon Dioxide 29 Anion Gap 11.1 BUN 10 Creatinine 0.70 GFR Calculation 130 BUN/Creatinine Ratio 14.00 Glucose 100 Calculated Osmolality 281.1 Calcium 8.3 L Magnesium 2.2 Total Bilirubin 0.80 AST 15 ALT 19 Alkaline Phosphatase 100 Total Protein 6.2 L Albumin 2.6 L Globulin 3.6 H Albumin/Globulin Ratio 0.7 L Quality Measures - VTE Contraindication to Pharmacological VTE Prophylaxis: High Risk of Bleeding Specialty Discharge - Follow Up or Referrals Follow up with: Vipul Mcbride MD [Physician] - 1 Week (EKG and CBC) <Cinthia Yoon - Last Filed: 02/02/17 18:00> Cardiology - PN: Subj Interval history: I have personally interviewed and examined the patient, reviewed the chart and discussed medical decision-making with practitioner Raul. I have read this note and agree with the documentation herein. Exam (Progress Note) - Constitutional Vitals: Period Temp Pulse Resp BP Sys/Grant Pulse Ox Last 24 Hr 97.0 F-98.7 F 54-67 14-20 123-208/56-101 92-99 Result/EKG - Labs CBC & BMP: 02/02/17 04:04 02/02/17 04:04 Labs: Laboratory Results - last 24 hr 02/02/17 02/02/17 04:04 04:04 WBC 12.2 H RBC 4.37 Hgb 13.6 Hct 40.7 MCV 93.1 MCH 31 MCHC 33.4 RDW 14.1 Plt Count 341 MPV 11.5 Neut % (Auto) 51.3 Lymph % (Auto) 32.1 Jones % (Auto) 12.8 H Eos % (Auto) 2.6 Baso % (Auto) 0.7 Neut # (Auto) 6.2 Lymph # (Auto) 3.9 Jones # (Auto) 1.6 H Eos # (Auto) 0.3 Baso # (Auto) 0.1 Immature Gran % 0.5 Nucleated RBC % 0.0 Immature Gran # 0.06 Nucleated RBCs # 0.00 Immature Plt Fraction 0.0 Sodium 142 Potassium 4.1 Chloride 106 Carbon Dioxide 29 Anion Gap 11.1 BUN 10 Creatinine 0.70 GFR Calculation 130 BUN/Creatinine Ratio 14.00 Glucose 100 Calculated Osmolality 281.1 Calcium 8.3 L Magnesium 2.2 Total Bilirubin 0.80 AST 15 ALT 19 Alkaline Phosphatase 100 Total Protein 6.2 L Albumin 2.6 L Globulin 3.6 H Albumin/Globulin Ratio 0.7 L
[2017-02-02] MEDS: LISINOPRIL 20 MG TABLET PO SCH (10:08)
--- NOTE | 2017-02-02 13:49 | XRay Report ---
XR chest 2V Indication: Pneumonia Comparison: Chest x-ray 01/31/2017 Technique: PA and lateral chest x-ray was performed. Findings: Borderline to mild cardiomegaly is stable. Postoperative changes from prior sternotomy also are stable. Atherosclerotic changes of the aortic knob demonstrate little change from comparison. Prominent central vasculature and cephalization of venous structures is stable. Blunting of the right costophrenic angle and minimal blunting of the left costophrenic angle suggested. Lung parenchyma demonstrates nonspecific parenchymal opacities in the lung bases likely accentuated by the anterior chest wall soft tissues. Bones and soft tissues appear stable. Impression: 1. No adverse interval change in the chest. Small bilateral pleural effusions and findings suggesting pulmonary venous hypertension demonstrated. 02/02/2017 1:46 PM PROCEDURE INTERPRETED AT [facility] DEPARTMENT OF RADIOLOGY Final Report Signed by: Dr. Quang Dhillon
[2017-02-02] MEDS: AZITHROMYCIN INJ 250 MG in SODIUM CHLORIDE 0.9% 250 ML IV SCH (21:54)
[2017-02-03] MEDS: ALBUTEROL/IPRATROPIUM 3 ML NEB RESP TX SCH ×3 (00:05→07:20)
[2017-02-03 05:23] LABS: Basophils # 0.1 10*3/uL (0.0-0.2); Basophils % 0.9 % (0.0-0.8); Eosinophils # 0.3 10*3/uL (0.0-0.87); Eosinophils % 2.7 % (0.00-10.9); Hematocrit 40.5 VOL% (35.7-47.0); Hemoglobin 13.3 GM/DL (12.0-16.0); Immature Granulocytes % 0.5 %; Immature Granulocytes Absolute 0.06 #; Lymphocytes # 4.4 10*3/uL (1.4-4.0); Lymphocytes % 38.6 % (21.3-54.2); Mean Corpuscular HGB Conc 32.8 GM/DL (32-36); Mean Corpuscular Hemoglobin 31 PG (27-34); Mean Platelet Volume 11.4 FL (9.6-12.0); Monocytes # 1.3 10*3/uL (0.11-0.8); Monocytes % 11.6 % (1.7-12.7); Neutrophils # 5.2 10*3/uL (1.4-7.4); Neutrophils % 45.7 % (38.7-73.9); Platelet Count 344 T/CUMM (130-400); Red Blood Count 4.31 MC/CUMM (3.8-5.5); White Blood Count 11.3 T/CUMM (4-12)
[2017-02-03 05:42] LABS: Calcium 8.5 MG/DL (8.5-10.1); Magnesium 2.2 MG/DL (1.8-2.4); Osmolality,Calculated 280.3 MOS/KG (273-304); Potassium 4.3 MMOL/L (3.5-5.1)
[2017-02-03 07:50] VITALS: BP 190/83
--- NOTE | 2017-02-03 08:14 | Discharge Summary ---
Hospital Course - Hospital Course Hospital Course: History of present illness: Ms. Kulkarni is a 71 year old female 71-year-old white female well known to me presented to emergency room with complaint of slight cough with pain in the left upper chest and dyspnea. Symptoms rather rapid onset over a 24-hour period of time. She was seen in emergency room and diagnosed with a right lower lobe pneumonia. She has had minimal cough but have a temperature of 101 on admission she also had a 17,000 white blood cell count. Chest x-ray is read more of a heart failure and pneumonia. BNP is 108. Patient states she was extremely dyspneic on admission. Has a history of coronary artery disease with previous coronary bypass graft has had no cardiac follow-up in many years in view of overall history we'll admit and have cardiology evaluate during this hospitalization she has been started on empiric antibiotic therapy . Diagnosis - Discharge Diagnosis (1) right lower lobe pneumonia Status: Acute (2) Atrial fibrillation, new onset Status: Acute (3) Coronary artery disease with stent Status: Acute (4) status post coronary artery bypass graft Status: Chronic (5) Coronary artery disease Status: Chronic (6) Hypertension Status: Chronic (7) Unspecified sleep apnea Status: Chronic (8) Morbid obesity with BMI of 50.0-59.9, adult Status: Chronic (9) Hyperlipidemia Status: Chronic Specialty Discharge - Follow Up or Referrals Follow up with: Patel David DO [Physician] - 02/12/17 Vipul Mcbride MD [Physician] - 1 Week (EKG and CBC) Discharge Plan - Discharge Data Disposition: Disch To Home/Self Care Discharge Diet: advance to your usual diet Activity: ambulate only with your walker Weight Bearing at Discharge: weight bear as tolerated Contact your physician if you experience:: fever over 101, Shortness of breath - Discharge Medications New Azithromycin Tab [Zithromax Tab] 250 mg PO DAILY #10 tablet Furosemide Tab [Lasix Tab] 40 mg PO DAILY #30 tablet Potassium Chloride Cap/Tab [K Dur] 20 meq PO DAILY #30 tablet Apixaban [Eliquis] 5 mg PO BID #60 tablet Continue Amlodipine Besylate 10 mg PO DAILY Metoprolol Succinate 25 mg PO DAILY raNITIdine HCl [Ranitidine HCl] 300 mg PO DAILY Atorvastatin [Lipitor] 40 mg PO DAILY Clopidogrel Bisulfate [Clopidogrel] 75 mg PO DAILY Furosemide 40 mg PO DAILY Aspirin [Ecotrin] 81 mg PO DAILY - Follow Up or Referral Follow Up: Vipul Mcbride MD [Physician] - 1 Week (EKG and CBC) Patel David DO [Physician] - 02/12/17 - Forms/Instructions Instructions: Left Heart Catheterization (DC), Heart Healthy Diet (GEN), Coronary Intravascular Stent Placement, Diamond [employer] (GEN) Exam - Constitutional Vitals: Period Temp Pulse Resp BP Sys/Grant Pulse Ox Last 24 Hr 97.0 F-98.5 F 54-72 16-20 123-190/65-86 94-99 General appearance: no acute distress - Head Head exam: Present: normal inspection - Eye Pupils: Present: DELL - ENT ENT exam: Present: normal exam - Neck Neck exam: Present: normal inspection - Respiratory Respiratory exam: Present: clear to auscultation bilaterally - Cardiovascular Cardiovascular exam: Present: irregular rhythm - GI/Abdominal GI/Abdominal exam: Present: normal bowel sounds, soft - Extremities Exam Extremities exam: Present: full ROM, edema - Back Exam Back exam: Present: normal inspection - Neurological Exam Neurological exam: Present: alert, oriented X3 - Psychiatric Psychiatric exam: Present: normal affect - Skin Skin exam: Present: normal color Discharge Results Procedures and tests throughout hospitalization: Pending Orders 02/04/17 04:00 BMP w/ Mg [Basic Metabolic Panel w/Mg] IN AM CBC [Comp Blood Count Auto Diff] IN AM 02/05/17 04:00 BMP w/ Mg [Basic Metabolic Panel w/Mg] IN AM CBC [Comp Blood Count Auto Diff] IN AM Labs on day of discharge: Labs from last 24 hours 02/03/17 02/03/17 04:35 04:35 WBC 11.3 RBC 4.31 Hgb 13.3 Hct 40.5 MCV 94.0 MCH 31 MCHC 32.8 RDW 14.0 Plt Count 344 MPV 11.4 Neut % (Auto) 45.7 Lymph % (Auto) 38.6 [place] % (Auto) 11.6 Eos % (Auto) 2.7 Baso % (Auto) 0.9 H Neut # (Auto) 5.2 Lymph # (Auto) 4.4 H [place] # (Auto) 1.3 H Eos # (Auto) 0.3 Baso # (Auto) 0.1 Immature Gran % 0.5 Nucleated RBC % 0.0 Immature Gran # 0.06 Nucleated RBCs # 0.00 Immature Plt Fraction 0.0 Sodium 141 Potassium 4.3 Chloride 105 Carbon Dioxide 30 Anion Gap 10.3 BUN 13 Creatinine 0.70 GFR Calculation 129 BUN/Creatinine Ratio 18.00 Glucose 97 Calculated Osmolality 280.3 Calcium 8.5 Magnesium 2.2 DS: Provider Date of admission: 01/24/17 21:52 Primary care physician: . 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 Consulting Provider: Aaron Bernstein 01/25/17 13:24 Consult to Sleep Center [CONS] Routine Reason for Sleep Center: Sleep Center Physician Consult Comment: eval for sleep disorder, Hx CABG/HTN/morbid obesity 01/28/17 09:42 Consult to Physician [CONS] Routine Comment: POSITIVE BLOOD CULTURES Consulting Provider: Cristina Smart When should Consulting Provider be notified: Now 01/29/17 12:17 Consult to Cardiac Rehabilitation [CONS] Routine Reason for Cardiac Rehabilitation: Risk Factor Modification 02/01/17 08:27 Consult to Case Mgmt/Social Srvs [CONS] Routine Reason for Case Mgmt/Social Srvs: Swingbed/SNF/Residential Consult Comment: Evaluate for swing bed 02/02/17 08:15 Consult to Physical Therapy [CONS] Routine Reason for Physical Therapy: Ambulation Start Therapy: Today Consult Comment: Need to get patient ambulating for discharge Discharging clinician: Patel David DO
[2017-02-03] MEDS: POTASSIUM CHLORIDE 20 MEQ TABLET PO SCH (08:29)
[2017-02-03] MEDS: DILTIAZEM CD 120 MG CAPSULE PO SCH (08:29)
[2017-02-03] MEDS: LISINOPRIL 20 MG TABLET PO SCH (08:29)
[2017-02-03] MEDS: CLOPIDOGREL 75 MG TABLET PO SCH (08:29)
[2017-02-03] MEDS: ATORVASTATIN 40 MG TABLET PO SCH (08:29)
[2017-02-03] MEDS: PANTOPRAZOLE 40 MG TABLET PO SCH (08:30)
[2017-02-03] MEDS: FUROSEMIDE 40 MG TABLET PO SCH (08:30)
[2017-02-03] MEDS: ASPIRIN EC 81 MG TABLET PO SCH (08:30)
[2017-02-03] MEDS: BENZONATATE 100 MG CAPSULE PO SCH (08:30)
[2017-02-03] MEDS: METOPROLOL SUCCINATE XL 50 MG TABLET PO SCH (08:30)
[2017-02-03] MEDS: APIXABAN 5 MG TABLET PO SCH (08:30)
[2017-02-03] MEDS: DOCUSATE SODIUM 100 MG CAPSULE PO SCH (08:30)
[2017-02-03] MEDS ORDERED: AZITHROMYCIN 250 MG TABLET PO SCH (09:00)
== END 2017-02-03 10:45 | disposition home or self-care (01) | DRG 981 ==
LOC: N.ED 18:19 → N.EDINP 21:52 → N.TELES 23:40
PROVIDERS: ADMIT Family Medicine; ATTEND Family Medicine

== ENCOUNTER 2019-04-04 12:30 | Inpatient (IN) ==
[2019-04-04] MEDS ORDERED: ACETAMINOPHEN 325 MG TABLET PO PRN (13:00)
[2019-04-04] MEDS ORDERED: ONDANSETRON 4 MG/2 ML VIAL IV PRN (13:00)
[2019-04-04] MEDS ORDERED: MAGNESIUM HYDROXIDE SUSP 30 ML UDCUP PO PRN (13:00)
[2019-04-04] MEDS ORDERED: INFLUENZA VIRUS VACCINE 0.5 ML SYRINGE IM ONE (15:51)
[2019-04-04 16:52] LABS: Basophils # 0.1 10*3/uL (0.0-0.2); Basophils % 0.9 % (0.0-0.8); Eosinophils # 0.1 10*3/uL (0.0-0.87); Eosinophils % 1.2 % (0.00-10.9); Hemoglobin 13.8 GM/DL (12.0-16.0); Immature Granulocytes % 0.4 %; Immature Granulocytes Absolute 0.05 #; Mean Corpuscular HGB Conc 31.4 GM/DL (32-36); Mean Corpuscular Volume 95.9 FL (87-102); Mean Platelet Volume 10.7 FL (9.6-12.0); Monocytes % 10.9 % (1.7-12.7); Neutrophils % 51.6 % (38.7-73.9); Platelet Count 326 T/CUMM (130-400); Red Blood Count 4.59 MC/CUMM (3.8-5.5); White Blood Count 11.5 T/CUMM (4-12)
[2019-04-04 17:13] LABS: Albumin 2.9 G/DL (3.4-5.0); Bilirubin,Total 0.4 MG/DL (0.2-1.0); Calcium 9.2 MG/DL (8.5-10.1); Osmolality,Calculated 283.1 MOS/KG (273-304); Total Protein 7.7 G/DL (6.4-8.3)
[2019-04-04] MEDS: POTASSIUM CHLORIDE INJ 10 MEQ in SODIUM CHLORIDE 0.45% 1,000 ML IV SCH (17:20)
[2019-04-04] MEDS: LEVOFLOXACIN INJ 750 MG in PREMIX 1 EACH IV SCH (19:07)
[2019-04-04 20:35] LABS: Apearance,Urine CLEAR (Clear); Bacteria,Urine Many /HPF (Few); Bilirubin,Urine Negative (Negative); Blood, Urine Negative (Negative); Glucose,Urine (UA) Negative (Negative); Ketones,Urine Negative (Negative); Mucus,Urine Occasional /LPF (Occasional); Nitrite,Urine Negative (Negative); Protein,Urine Negative; RBC,Urine 3 /HPF (0-4); Squamous Epithelial Cell,Urine Occasional /HPF (0-10); Urine Color Yellow (Yellow); Urine Specific Gravity 1.009 (1.001-1.035); WBC,Urine 13 /HPF (0-6)
[2019-04-04] MEDS ORDERED: CLOPIDOGREL 75 MG TABLET PO SCH (21:00)
[2019-04-04] MEDS: DOCUSATE SODIUM 100 MG CAPSULE PO SCH (21:51)
[2019-04-04] MEDS: ENOXAPARIN 40 MG/0.4 ML SYRINGE SUBCUT SCH (21:51)
[2019-04-05] MEDS: POTASSIUM CHLORIDE INJ 10 MEQ in SODIUM CHLORIDE 0.45% 1,000 ML IV SCH ×2 (04:37→16:01)
[2019-04-05 05:23] LABS: Basophils # 0.1 10*3/uL (0.0-0.2); Basophils % 0.7 % (0.0-0.8); Eosinophils # 0.1 10*3/uL (0.0-0.87); Eosinophils % 1.1 % (0.00-10.9); Hematocrit 41.6 VOL% (35.7-47.0); Hemoglobin 13.4 GM/DL (12.0-16.0); Immature Granulocytes % 0.4 %; Immature Granulocytes Absolute 0.05 #; Lymphocytes % 33.5 % (21.3-54.2); Mean Corpuscular HGB Conc 32.2 GM/DL (32-36); Mean Corpuscular Volume 95.4 FL (87-102); Mean Platelet Volume 10.6 FL (9.6-12.0); Monocytes % 9.5 % (1.7-12.7); Neutrophils % 54.8 % (38.7-73.9); Platelet Count 305 T/CUMM (130-400); Red Blood Count 4.36 MC/CUMM (3.8-5.5)
[2019-04-05 05:57] LABS: Albumin 2.8 G/DL (3.4-5.0); Bilirubin,Total 0.7 MG/DL (0.2-1.0); Calcium 8.4 MG/DL (8.5-10.1); Osmolality,Calculated 284.8 MOS/KG (273-304); Risk Ratio 1.92; VLDL CHOLESTEROL 24.6 MG/DL
[2019-04-05] MEDS: amLODIPine 10 MG TABLET PO SCH (08:42)
[2019-04-05] MEDS: FUROSEMIDE 40 MG TABLET PO SCH (08:42)
[2019-04-05] MEDS: METOPROLOL SUCCINATE XL 25 MG TABLET PO SCH (08:42)
[2019-04-05] MEDS: ASPIRIN EC 81 MG TABLET PO SCH (08:42)
[2019-04-05] MEDS: DOCUSATE SODIUM 100 MG CAPSULE PO SCH ×2 (08:42→20:51)
[2019-04-05] MEDS: ATORVASTATIN 40 MG TABLET PO SCH (08:42)
[2019-04-05] MEDS: PANTOPRAZOLE 40 MG TABLET PO SCH (08:42)
[2019-04-05] MEDS: LEVOFLOXACIN INJ 750 MG in PREMIX 1 EACH IV SCH (08:45)
[2019-04-05] MEDS ORDERED: POTASSIUM CHLORIDE 20 MEQ TABLET PO SCH (09:00)
[2019-04-05] MEDS: ENOXAPARIN 40 MG/0.4 ML SYRINGE SUBCUT SCH (20:51)
[2019-04-05] MEDS ORDERED: CLOPIDOGREL 75 MG TABLET PO SCH (21:00)
[2019-04-06] MEDS: POTASSIUM CHLORIDE INJ 10 MEQ in SODIUM CHLORIDE 0.45% 1,000 ML IV SCH (02:04)
[2019-04-06 05:24] LABS: Basophils # 0.1 10*3/uL (0.0-0.2); Basophils % 0.8 % (0.0-0.8); Eosinophils # 0.2 10*3/uL (0.0-0.87); Eosinophils % 1.6 % (0.00-10.9); Hematocrit 40.9 VOL% (35.7-47.0); Immature Granulocytes % 0.2 %; Immature Granulocytes Absolute 0.02 #; Lymphocytes % 40.9 % (21.3-54.2); Mean Corpuscular HGB Conc 31.8 GM/DL (32-36); Mean Corpuscular Volume 96.2 FL (87-102); Mean Platelet Volume 11.1 FL (9.6-12.0); Monocytes % 11.2 % (1.7-12.7); Neutrophils % 45.3 % (38.7-73.9); Platelet Count 307 T/CUMM (130-400); Red Blood Count 4.25 MC/CUMM (3.8-5.5); Red Cell Distribution Width 14.2 % (9.3-17.3); White Blood Count 9.9 T/CUMM (4-12)
[2019-04-06 06:03] LABS: Albumin 2.7 G/DL (3.4-5.0); Bilirubin,Total 0.7 MG/DL (0.2-1.0); Calcium 8.3 MG/DL (8.5-10.1); Thyroid Stimulating Hormone 1.36 uIU/ml (0.358-3.74); Total Protein 6.6 G/DL (6.4-8.3)
[2019-04-06] MEDS: amLODIPine 10 MG TABLET PO SCH (09:25)
[2019-04-06] MEDS: DOCUSATE SODIUM 100 MG CAPSULE PO SCH ×2 (09:25→20:33)
[2019-04-06] MEDS: METOPROLOL SUCCINATE XL 25 MG TABLET PO SCH (09:25)
[2019-04-06] MEDS: FUROSEMIDE 40 MG TABLET PO SCH (09:25)
[2019-04-06] MEDS: LEVOFLOXACIN INJ 750 MG in PREMIX 1 EACH IV SCH (09:26)
[2019-04-06] MEDS: POTASSIUM CHLORIDE 20 MEQ TABLET PO SCH ×2 (09:26→20:24)
[2019-04-06] MEDS: PANTOPRAZOLE 40 MG TABLET PO SCH (09:26)
[2019-04-06] MEDS: ATORVASTATIN 40 MG TABLET PO SCH (09:26)
[2019-04-06] MEDS: ASPIRIN EC 81 MG TABLET PO SCH (09:27)
[2019-04-06] MEDS: SODIUM CHLOR 0.45% KCL 20 MEQ 20 MEQ/1,000 ML BAG IV SCH ×3 (15:57→16:07)
[2019-04-06] MEDS: ENOXAPARIN 40 MG/0.4 ML SYRINGE SUBCUT SCH (20:24)
[2019-04-07] MEDS: SODIUM CHLOR 0.45% KCL 20 MEQ 20 MEQ/1,000 ML BAG IV SCH (02:44)
[2019-04-07 06:56] LABS: Basophils # 0.1 10*3/uL (0.0-0.2); Basophils % 1.2 % (0.0-0.8); Eosinophils # 0.3 10*3/uL (0.0-0.87); Eosinophils % 3.2 % (0.00-10.9); Hematocrit 39.7 VOL% (35.7-47.0); Hemoglobin 12.7 GM/DL (12.0-16.0); Immature Granulocytes % 0.3 %; Immature Granulocytes Absolute 0.03 #; Lymphocytes # 4.1 10*3/uL (1.4-4.0); Lymphocytes % 43.2 % (21.3-54.2); Mean Corpuscular Volume 95.4 FL (87-102); Mean Platelet Volume 10.6 FL (9.6-12.0); Monocytes % 11.3 % (1.7-12.7); Neutrophils % 40.8 % (38.7-73.9); Platelet Count 285 T/CUMM (130-400); Red Blood Count 4.16 MC/CUMM (3.8-5.5); Red Cell Distribution Width 14.1 % (9.3-17.3); White Blood Count 9.4 T/CUMM (4-12)
[2019-04-07 07:31] LABS: Albumin 2.8 G/DL (3.4-5.0); Bilirubin,Total 0.7 MG/DL (0.2-1.0); Calcium 8.7 MG/DL (8.5-10.1); Osmolality,Calculated 286.7 MOS/KG (273-304); Total Protein 6.5 G/DL (6.4-8.3)
[2019-04-07] MEDS ORDERED: LEVOFLOXACIN 500 MG TABLET PO SCH (09:00)
[2019-04-07] MEDS: ASPIRIN EC 81 MG TABLET PO SCH (09:10)
[2019-04-07] MEDS: DOCUSATE SODIUM 100 MG CAPSULE PO SCH (09:10)
[2019-04-07] MEDS: FUROSEMIDE 40 MG TABLET PO SCH (09:10)
[2019-04-07] MEDS: ATORVASTATIN 40 MG TABLET PO SCH (09:10)
[2019-04-07] MEDS: METOPROLOL SUCCINATE XL 25 MG TABLET PO SCH (09:10)
[2019-04-07] MEDS: POTASSIUM CHLORIDE 20 MEQ TABLET PO SCH (09:10)
[2019-04-07] MEDS: PANTOPRAZOLE 40 MG TABLET PO SCH (09:11)
[2019-04-07] MEDS: amLODIPine 10 MG TABLET PO SCH (09:11)
[2019-04-07 11:37] VITALS: BP 146/52
[2019-04-07] MEDS ORDERED: SILVER SULFADIAZINE 1% CREAM 25 GM TUBE TOP SCH (21:00)
== END 2019-04-07 16:15 | disposition home health service (06) | DRG 593 ==
LOC: N.2E 15:11
PROVIDERS: ADMIT Family Medicine; ATTEND Family Medicine

== ENCOUNTER 2020-05-12 12:07 | Inpatient (IN) ==
[2020-05-12] MEDS ORDERED: cefTRIAXone 1,000 MG in SODIUM CHLORIDE 0.9% 100 ML IV STA (12:32)
[2020-05-12 12:52] LABS: Albumin 2.9 G/DL (3.4-5.0); Bilirubin,Total 0.9 MG/DL (0.2-1.0); Calcium 8.9 MG/DL (8.5-10.1); Osmolality,Calculated 278.4 MOS/KG (273-304); Total Protein 7.3 G/DL (6.4-8.3)
[2020-05-12 13:06] LABS: Basophils # 0.1 10*3/uL (0.0-0.2); Basophils % 0.9 % (0.0-0.8); Eosinophils # 0.1 10*3/uL (0.0-0.87); Eosinophils % 0.8 % (0.00-10.9); Hematocrit 41.9 VOL% (35.7-47.0); Hemoglobin 13.8 GM/DL (12.0-16.0); Immature Granulocytes % 0.4 %; Immature Granulocytes Absolute 0.05 #; Lymphocytes # 3.4 10*3/uL (1.4-4.0); Lymphocytes % 26.4 % (21.3-54.2); Mean Corpuscular HGB Conc 32.9 GM/DL (32-36); Mean Corpuscular Volume 92.9 FL (87-102); Mean Platelet Volume 10.4 FL (9.6-12.0); Monocytes % 11.2 % (1.7-12.7); Neutrophils % 60.3 % (38.7-73.9); Platelet Count 306 T/CUMM (130-400); Red Blood Count 4.51 MC/CUMM (3.8-5.5); Red Cell Distribution Width 14.6 % (9.3-17.3)
[2020-05-12] MEDS ORDERED: FUROSEMIDE 40 MG/4 ML VIAL IV STA (13:41)
[2020-05-12] MEDS ORDERED: ONDANSETRON 4 MG/2 ML VIAL IV PRN (13:44)
[2020-05-12] MEDS: FUROSEMIDE 40 MG TABLET PO SCH (14:32)
[2020-05-12 14:36] LABS: Bilirubin,Urine Negative (Negative); Blood, Urine Negative (Negative); Glucose,Urine (UA) Negative (Negative); Hyaline Casts,Urine 1 /LPF (0-3); Ketones,Urine Negative (Negative); Mucus,Urine Occasional /LPF (Occasional); Nitrite,Urine Negative (Negative); Protein,Urine Negative; RBC,Urine 3 /HPF (0-4); Urine Appearance CLEAR (Clear); Urine Color Yellow (Yellow); Urine Specific Gravity 1.006 (1.001-1.035); Urine Urobilinogen < 2.0 EU/DL (0.2-1.0); WBC,Urine <1 /HPF (0-6)
[2020-05-12] MEDS ORDERED: INFLUENZA VIRUS VACCINE 0.5 ML SYRINGE IM ONE (15:39)
[2020-05-12] MEDS: ACETAMINOPHEN 325 MG TABLET PO PRN (17:22)
[2020-05-12] MEDS: HYDROCORTISONE 2.5% CREAM 30 GM TUBE TOP SCH (17:23)
[2020-05-12] MEDS: ATORVASTATIN 40 MG TABLET PO SCH (21:56)
[2020-05-12] MEDS: amLODIPine 10 MG TABLET PO SCH (21:56)
[2020-05-12] MEDS: VITAMIN E 400 UNIT CAPSULE PO SCH (21:56)
[2020-05-12] MEDS: METOPROLOL SUCCINATE XL 25 MG TABLET PO SCH (21:56)
[2020-05-12] MEDS: ASPIRIN EC 81 MG TABLET PO SCH (21:56)
[2020-05-12] MEDS: traMADol 50 MG TABLET PO PRN (21:57)
[2020-05-12] MEDS: CLOPIDOGREL 75 MG TABLET PO SCH (21:57)
[2020-05-12] MEDS: DOCUSATE SODIUM 100 MG CAPSULE PO SCH (22:04)
[2020-05-13] MEDS: HYDROCORTISONE 2.5% CREAM 30 GM TUBE TOP SCH ×2 (06:27→16:59)
[2020-05-13] MEDS: PANTOPRAZOLE 40 MG TABLET PO SCH (09:43)
[2020-05-13] MEDS: DOCUSATE SODIUM 100 MG CAPSULE PO SCH ×2 (09:43→21:34)
[2020-05-13] MEDS: FUROSEMIDE 40 MG TABLET PO SCH ×2 (09:43→14:44)
[2020-05-13] MEDS: LEVOFLOXACIN INJ 500 MG in PREMIX 1 EACH IV SCH (09:45)
[2020-05-13] MEDS: traMADol 50 MG TABLET PO PRN (17:02)
[2020-05-13] MEDS ORDERED: CHLORHEXIDINE 4% SOLN 118 ML BOTTLE TOP ONE ×2 (17:05→20:00)
[2020-05-13] MEDS: ASPIRIN EC 81 MG TABLET PO SCH (21:34)
[2020-05-13] MEDS: CLOPIDOGREL 75 MG TABLET PO SCH (21:35)
[2020-05-13] MEDS: ATORVASTATIN 40 MG TABLET PO SCH (21:35)
[2020-05-13] MEDS: amLODIPine 10 MG TABLET PO SCH (21:35)
[2020-05-13] MEDS: VITAMIN E 400 UNIT CAPSULE PO SCH (21:35)
[2020-05-13] MEDS: ENOXAPARIN 40 MG/0.4 ML SYRINGE SUBCUT SCH (21:36)
[2020-05-13] MEDS: METOPROLOL SUCCINATE XL 25 MG TABLET PO SCH (21:36)
[2020-05-14] MEDS: HYDROCORTISONE 2.5% CREAM 30 GM TUBE TOP SCH (05:30)
[2020-05-14 05:34] LABS: Basophils # 0.1 10*3/uL (0.0-0.2); Basophils % 0.7 % (0.0-0.8); Eosinophils # 0.2 10*3/uL (0.0-0.87); Eosinophils % 1.9 % (0.00-10.9); Hematocrit 40.6 VOL% (35.7-47.0); Hemoglobin 13.4 GM/DL (12.0-16.0); Immature Granulocytes % 0.3 %; Immature Granulocytes Absolute 0.03 #; Lymphocytes # 2.8 10*3/uL (1.4-4.0); Lymphocytes % 24.7 % (21.3-54.2); Mean Corpuscular Volume 92.3 FL (87-102); Mean Platelet Volume 10.5 FL (9.6-12.0); Monocytes % 12.1 % (1.7-12.7); Neutrophils % 60.3 % (38.7-73.9); Platelet Count 287 T/CUMM (130-400); Red Cell Distribution Width 14.4 % (9.3-17.3); White Blood Count 11.5 T/CUMM (4-12)
[2020-05-14 06:10] LABS: Albumin 2.5 G/DL (3.4-5.0); Bilirubin,Total 0.9 MG/DL (0.2-1.0); Calcium 8.4 MG/DL (8.5-10.1); Free T4 (Free Thyroxine) 1.03 NG/DL (0.76-1.46); Osmolality,Calculated 276.5 MOS/KG (273-304); Risk Ratio 2.71; Thyroid Stimulating Hormone 2.16 uIU/ml (0.358-3.74); Total Protein 6.7 G/DL (6.4-8.3); VLDL CHOLESTEROL 15.6 MG/DL
[2020-05-14] MEDS: POTASSIUM CHLORIDE 20 MEQ TABLET PO PRN ×4 (08:48→17:18)
[2020-05-14] MEDS: PANTOPRAZOLE 40 MG TABLET PO SCH (08:48)
[2020-05-14] MEDS: DOCUSATE SODIUM 100 MG CAPSULE PO SCH ×2 (08:48→21:05)
[2020-05-14] MEDS: FUROSEMIDE 40 MG TABLET PO SCH ×2 (08:48→14:30)
[2020-05-14] MEDS: LEVOFLOXACIN INJ 500 MG in PREMIX 1 EACH IV SCH (08:49)
[2020-05-14] MEDS: traMADol 50 MG TABLET PO PRN (12:06)
[2020-05-14] MEDS: VITAMIN E 400 UNIT CAPSULE PO SCH (21:05)
[2020-05-14] MEDS: ENOXAPARIN 40 MG/0.4 ML SYRINGE SUBCUT SCH (21:05)
[2020-05-14] MEDS: METOPROLOL SUCCINATE XL 25 MG TABLET PO SCH (21:06)
[2020-05-14] MEDS: amLODIPine 10 MG TABLET PO SCH (21:06)
[2020-05-14] MEDS: ASPIRIN EC 81 MG TABLET PO SCH (21:06)
[2020-05-14] MEDS: CLOPIDOGREL 75 MG TABLET PO SCH (21:06)
[2020-05-14] MEDS: ATORVASTATIN 40 MG TABLET PO SCH (21:06)
[2020-05-15 05:12] LABS: Basophils # 0.1 10*3/uL (0.0-0.2); Basophils % 0.7 % (0.0-0.8); Eosinophils # 0.2 10*3/uL (0.0-0.87); Eosinophils % 1.6 % (0.00-10.9); Hematocrit 41.6 VOL% (35.7-47.0); Hemoglobin 13.5 GM/DL (12.0-16.0); Immature Granulocytes % 0.3 %; Immature Granulocytes Absolute 0.04 #; Lymphocytes # 2.6 10*3/uL (1.4-4.0); Lymphocytes % 22.2 % (21.3-54.2); Mean Corpuscular HGB Conc 32.5 GM/DL (32-36); Mean Corpuscular Volume 93.1 FL (87-102); Mean Platelet Volume 10.4 FL (9.6-12.0); Monocytes % 13.9 % (1.7-12.7); Neutrophils % 61.3 % (38.7-73.9); Platelet Count 291 T/CUMM (130-400); Red Blood Count 4.47 MC/CUMM (3.8-5.5); Red Cell Distribution Width 14.6 % (9.3-17.3); White Blood Count 11.6 T/CUMM (4-12)
[2020-05-15 05:31] LABS: Albumin 2.4 G/DL (3.4-5.0); Calcium 8.4 MG/DL (8.5-10.1); Osmolality,Calculated 277.4 MOS/KG (273-304); Total Protein 6.7 G/DL (6.4-8.3)
[2020-05-15] MEDS: FUROSEMIDE 40 MG TABLET PO SCH ×2 (08:51→13:06)
[2020-05-15] MEDS: PANTOPRAZOLE 40 MG TABLET PO SCH (08:51)
[2020-05-15] MEDS: DOCUSATE SODIUM 100 MG CAPSULE PO SCH ×2 (08:51→21:09)
[2020-05-15] MEDS: LEVOFLOXACIN INJ 500 MG in PREMIX 1 EACH IV SCH (08:52)
[2020-05-15] MEDS ORDERED: PNEUMOCOCCAL VACCINE (23 VALENT) 0.5 ML VIAL IM ONE ×3 (09:20→09:30)
[2020-05-15] MEDS: VITAMIN E 400 UNIT CAPSULE PO SCH (21:09)
[2020-05-15] MEDS: CLOPIDOGREL 75 MG TABLET PO SCH (21:09)
[2020-05-15] MEDS: ATORVASTATIN 40 MG TABLET PO SCH (21:09)
[2020-05-15] MEDS: ENOXAPARIN 40 MG/0.4 ML SYRINGE SUBCUT SCH (21:09)
[2020-05-15] MEDS: amLODIPine 10 MG TABLET PO SCH (21:09)
[2020-05-15] MEDS: METOPROLOL SUCCINATE XL 25 MG TABLET PO SCH (21:10)
[2020-05-15] MEDS: ASPIRIN EC 81 MG TABLET PO SCH (21:10)
[2020-05-16 04:08] LABS: Basophils # 0.1 10*3/uL (0.0-0.2); Basophils % 0.4 % (0.0-0.8); Eosinophils # 0.1 10*3/uL (0.0-0.87); Eosinophils % 0.9 % (0.00-10.9); Hematocrit 40.4 VOL% (35.7-47.0); Hemoglobin 13.1 GM/DL (12.0-16.0); Immature Granulocytes % 0.3 %; Immature Granulocytes Absolute 0.03 #; Lymphocytes # 2.5 10*3/uL (1.4-4.0); Lymphocytes % 21.5 % (21.3-54.2); Mean Corpuscular HGB Conc 32.4 GM/DL (32-36); Mean Corpuscular Volume 92.7 FL (87-102); Mean Platelet Volume 10.5 FL (9.6-12.0); Monocytes % 16.1 % (1.7-12.7); Neutrophils % 60.8 % (38.7-73.9); Platelet Count 279 T/CUMM (130-400); Red Blood Count 4.36 MC/CUMM (3.8-5.5); Red Cell Distribution Width 14.4 % (9.3-17.3); White Blood Count 11.7 T/CUMM (4-12)
[2020-05-16 04:23] LABS: Calcium 8.3 MG/DL (8.5-10.1); Osmolality,Calculated 279.3 MOS/KG (273-304)
[2020-05-16 04:34] LABS: Lymphocytes 19 % (20-55); Segmented Neutrophils 69 % (50-85); Total Cells Counted 100
[2020-05-16 04:35] LABS: Platelet Estimate Adequate
[2020-05-16] MEDS: LEVOFLOXACIN INJ 500 MG in PREMIX 1 EACH IV SCH (08:57)
[2020-05-16] MEDS: POTASSIUM CHLORIDE 10 MEQ TABLET PO SCH ×2 (08:57→21:14)
[2020-05-16] MEDS: PANTOPRAZOLE 40 MG TABLET PO SCH (08:57)
[2020-05-16] MEDS: DOCUSATE SODIUM 100 MG CAPSULE PO SCH ×2 (08:57→21:14)
[2020-05-16] MEDS: FUROSEMIDE 40 MG TABLET PO SCH ×2 (08:57→15:07)
[2020-05-16] MEDS: traMADol 50 MG TABLET PO PRN (09:02)
[2020-05-16] MEDS: ACETAMINOPHEN 325 MG TABLET PO PRN (12:05)
[2020-05-16] MEDS: amLODIPine 10 MG TABLET PO SCH (21:14)
[2020-05-16] MEDS: VITAMIN E 400 UNIT CAPSULE PO SCH (21:14)
[2020-05-16] MEDS: METOPROLOL SUCCINATE XL 25 MG TABLET PO SCH (21:14)
[2020-05-16] MEDS: ASPIRIN EC 81 MG TABLET PO SCH (21:14)
[2020-05-16] MEDS: ATORVASTATIN 40 MG TABLET PO SCH (21:14)
[2020-05-16] MEDS: ENOXAPARIN 40 MG/0.4 ML SYRINGE SUBCUT SCH (21:15)
[2020-05-16] MEDS: CLOPIDOGREL 75 MG TABLET PO SCH (21:15)
[2020-05-17] MEDS: LEVOFLOXACIN INJ 500 MG in PREMIX 1 EACH IV SCH (08:44)
[2020-05-17] MEDS: POTASSIUM CHLORIDE 20 MEQ TABLET PO PRN (08:45)
[2020-05-17] MEDS: FUROSEMIDE 40 MG TABLET PO SCH ×2 (08:45→15:49)
[2020-05-17] MEDS: PANTOPRAZOLE 40 MG TABLET PO SCH (08:45)
[2020-05-17] MEDS: DOCUSATE SODIUM 100 MG CAPSULE PO SCH (08:45)
[2020-05-17] MEDS: POTASSIUM CHLORIDE 10 MEQ TABLET PO SCH (10:09)
[2020-05-17 15:37] VITALS: BP 143/70
== END 2020-05-17 15:48 | disposition home health service (06) | DRG 603 ==
LOC: EDBD → EDUNIT# → N.ED 12:07 → N.EDINP 13:44 → N.5E 15:17
PROVIDERS: ADMIT Family Medicine; ATTEND Family Medicine